=== PATIENT | male | born 1950 | race Caucasian/White ===

== ENCOUNTER → 2016-08-24 | Outpatient (CLI) | payer MEDICARE ==
--- NOTE | 2016-08-25 09:58 | XR ---
EXAMINATION TYPE: XR chest 2V DATE OF EXAM: 08/24/2016 9:58 AM COMPARISON: 04/10/2016 HISTORY: Cough and congestion FINDINGS: Hyperinflation suggests COPD. There is biapical pleural thickening and subsegmental area of consolida tion involving the left midlung. This is stable suggestive of chronic atelectasis or scar. No pleural effusion or acute infiltrate. No pneumothorax or interstitial edema. Hypertrophic and degenerative change of the spine noted. Mild wedge deformity in the midthoracic spine appears chronic. IMPRESSION: 1. Findings suggest COPD which appears stable from previous with chronic parenchymal changes involvin g the left lung.
== END | disposition home or self-care (01) ==
LOC: RADXRYALE 09:47
PROVIDERS: ATTEND Family Medicine
DX: J20.9 Acute bronchitis, unspecified (principal)
CPT/HCPCS: 71020

== ENCOUNTER 2016-11-02 20:32 | Emergency (ER) | payer MEDICARE ==
[2016-11-02] MEDS ORDERED: DIPH,PERTUS(ACELL)TETVAC-LF 0.5 ML VIAL IM ONE (21:22)
--- NOTE | 2016-11-02 21:28 | ED ---
General Adult HPI - General Chief complaint: Head Injury Stated complaint: Fall/Lac forehead Time Seen by Provider: 11/02/16 20:42 Source: patient, family, RN notes reviewed Mode of arrival: ambulatory Limitations: no limitations - History of Present Illness Initial comments: Patient is a pleasant 65-year-old male presenting to the emergency department following a fall. Patient slipped and fell in the shower. Patient sustained laceration to his forehead. Patient did also scraped his right mid leg. Unclear last tetanus immunization. Patient has had bleeding controlled with a right forehead. No syncope. No loss of consciousness. No visual change. Patient only has discomfort at the site of laceration. No neck or back pain. No chest pain or dyspnea. No abdominal pain. - Related Data Home Medications Medication Instructions Recorded Confirmed Folic Acid 1 mg PO DAILY 04/25/14 11/02/16 buPROPion HCL [Wellbutrin XL] 150 mg PO QAM 04/25/14 11/02/16 Magnesium Oxide [Mag-Ox] 250 mg PO DAILY 05/02/15 11/02/16 levETIRAcetam [Keppra] 1,500 mg PO Q12HR 05/02/15 11/02/16 Albuterol Inhaler [Ventolin Hfa 2 puff INHALATION RT-Q6H PRN 09/22/15 11/02/16 Inhaler] Aspirin [Adult Low Dose Aspirin EC] 81 mg PO DAILY 09/22/15 11/02/16 Ferrous Sulfate [Iron (65 MG 975 mg PO DAILY 09/22/15 11/02/16 Elemental)] HYDROcodone/APAP 10-325MG [[place] 1 tab PO Q4-6H PRN 09/22/15 11/02/16 10-325] Nitroglycerin Sl Tabs [Nitrostat] 0.4 mg SUBLINGUAL Q5M PRN 09/22/15 11/02/16 Nystatin 100,000Unit/gm Cream 1 applic TOPICAL BID PRN 09/22/15 11/02/16 [Mycostatin Cream] [place]-3 Fatty Acids/Fish Oil [Fish 1 cap PO DAILY 09/22/15 11/02/16 Oil 1,000 mg Softgel] Omeprazole [PriLOSEC] 20 mg PO AC-BRKFST 09/28/15 11/02/16 predniSONE 10 mg PO QAM 09/28/15 11/02/16 Previous Rx's Medication Instructions Recorded Cephalexin [Keflex] 500 mg PO Q8HR #21 cap 11/02/16 Allergies Allergy/AdvReac Type Severity Reaction Status Date / Time No Known Allergies Allergy Verified 11/02/16 21:52 Review of Systems ROS Statement: Those systems with pertinent positive or pertinent negative responses have been documented in the HPI. ROS Other: All systems not noted in ROS Statement are negative. 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 Last Myocardial Infarction Date:: UNK History of Any Multi-Drug Resistant Organisms: None Reported Past Surgical History: Heart Catheterization With Stent, Tonsillectomy, Ventriculoperitoneal Shunt Additional Past Surgical History / Comment(s): Right carotid endarterectomy, cardiac catheterization with insertion of a stent, STAFFING MGR shunt placement in 1986, left shoulder rotator cuff repair, multiple femoral stents 4. Vascular disease , bronchoscopy with bronchial lavage and transbronchial biopsy, fine-needle aspirate of the left lung Past Anesthesia/Blood Transfusion Reactions: No Reported Reaction Additional Past Anesthesia/Blood Transfusion Reaction / Comment(s): no problems with prior blood transfusion-last transfusion 2 units pRBCs September 21 or Date of Last Stent Placement:: UNK Past Psychological History: Anxiety, Depression Additional Psychological History / Comment(s): currently on Prozac for depression Smoking Status: Current every day smoker Past Alcohol Use History: Occasional Additional Past Alcohol Use History / Comment(s): SMOKED FOR 40 YEARS UP TO 1 PPD Past Drug Use History: None Reported - Past Family History Father Family Medical History: Dementia Additional Family Medical History / Comment(s): PARKINSON'S Mother Family Medical History: CVA/TIA, Dementia, Diabetes Mellitus Additional Family Medical History / Comment(s): Alheimer's General Exam Limitations: no limitations General appearance: alert, in no apparent distress Head exam: Present: other (Large forehead laceration) Eye exam: Present: normal appearance, PERRL, EOMI ENT exam: Present: normal oropharynx Neck exam: Present: normal inspection. Absent: tenderness Respiratory exam: Present: normal lung sounds bilaterally Cardiovascular Exam: Present: regular rate, normal rhythm GI/Abdominal exam: Present: soft. Absent: tenderness Extremities exam: Present: normal inspection, full ROM. Absent: tenderness Neurological exam: Present: alert, CN II-XII intact. Absent: motor sensory deficit Expanded Cranial nerves: EOM's Intact: Normal Motor strength exam: RUE: 5, LUE: 5, RLE: 5, LLE: 5 Eye Response: (4) open spontaneously Motor Response: (6) obeys commands Verbal Response: (5) oriented Psychiatric exam: Present: normal affect, normal mood Skin exam: Present: abrasion (Right gregory), other (7 cm forehead laceration with active bleeding extending to the left eyebrow.) Course Vital Signs 11/02/16 20:36 Temperature 98.1 F Pulse Rate 113 H Respiratory 20 Rate Blood Pressure 143/103 O2 Sat by Pulse 95 Oximetry Procedures - Laceration Laceration #1 Consent Obtained: verbal consent Time Out Performed: Yes Indication: laceration Site: face (Forehead) Size (cm): 7 Description: linear Depth: simple, single layer Anesthetic Used: lidocaine 1% Anesthesia Technique: local infiltration Pre-repair: wound explored, irrigated extensively Type of Sutures: nylon, vicryl (2 of 5-0 Vicryl) Size of Sutures: 5-0 Number of Sutures: 12 Technique: simple, interrupted Patient Tolerated Procedure: well, no complications Medical Decision Making - Medical Decision Making Patient and family updated - Radiology Data Radiology results: report reviewed (Computed tomography scan of the brain reveals no acute process) Disposition Clinical Impression: Head injury, Forehead laceration Disposition: HOME SELF-CARE Condition: Stable Instructions: Head Injury (ED), Laceration (ED) Additional Instructions: Please follow-up with primary care physician in the next couple days for recheck. Twice daily wash with soap and water, apply antibiotic ointment, and keep bandaged. Suture removal in 7-8 days. Return for bleeding, swelling, redness and confusion, change in mental status, worsening symptoms or other concerns. Prescriptions: Cephalexin [Keflex] 500 mg PO Q8HR #21 cap Referrals: Alex Villarreal MD [Primary Care Provider] - 1-2 days
--- NOTE | 2016-11-02 22:05 | CT ---
EXAMINATION TYPE: CT brain wo con DATE OF EXAM: 11/02/2016 9:55 PM COMPARISON: 09/22/2015 HISTORY: fall CT DLP: 1017.9 mGycm Automated exposure control for dose reduction was used. FINDINGS: There is cerebral cortical atrophy. There is no mass effect nor midline shift. There is no sign of in tracranial hemorrhage. There is a ventricular shunt catheter with the tip in the third ventricle. The re is scalp soft tissue swelling over the midline frontal bone. I see no fracture. IMPRESSION: Cerebral atrophy. Chronic small vessel ischemia. Mild normal pressure type hydrocephalus. Frontal sca lp soft tissue swelling. No intracranial change compared to old exam.
[2016-11-02 22:29] VITALS: BP 146/97; PULSE 91; RESP 18; TEMP 97.9
== END 2016-11-02 22:28 | disposition home or self-care (01) ==
LOC: EC 20:32
DX: S01.81XA Laceration without foreign body of other part of head, initial encounter (principal); I25.10 Atherosclerotic heart disease of native coronary artery without angina pectoris; G40.909 Epilepsy, unspecified, not intractable, without status epilepticus; F32.9 Major depressive disorder, single episode, unspecified; F41.9 Anxiety disorder, unspecified; M06.9 Rheumatoid arthritis, unspecified; D64.9 Anemia, unspecified; F17.200 Nicotine dependence, unspecified, uncomplicated; Z23 Encounter for immunization; Z79.899 Other long term (current) drug therapy; Z79.82 Long term (current) use of aspirin; Z95.5 Presence of coronary angioplasty implant and graft; W01.0XXA Fall on same level from slipping, tripping and stumbling without subsequent striking against object, initial encounter; Y92.89 Other specified places as the place of occurrence of the external cause
CPT/HCPCS: 12014; 70450; 90471; 90715; 99283

== ENCOUNTER 2016-11-03 14:52 | Emergency (ER) | payer MEDICARE ==
[2016-11-03 14:58] VITALS: BP 138/93; PULSE 90; RESP 20; TEMP 98.2
[2016-11-03] MEDS ORDERED: LIDOCAINE 1%-EPI 1:100,000 20 ML VIAL SQ STA (15:14)
--- NOTE | 2016-11-03 16:05 | ED ---
General Adult HPI - General Chief complaint: Recheck/Abnormal Lab/Rx Stated complaint: fall revisit bleeding Time Seen by Provider: 11/03/16 15:02 Source: patient, family, RN notes reviewed Mode of arrival: wheelchair Limitations: no limitations - History of Present Illness Initial comments: Patient is 65-year-old male who presents emergency room today with a chief complaint of bleeding coming from laceration site. Patient does admit to a fall yesterday in the bathroom. States he was seen here in emergency room. States he had a head CT. States is currently not on any blood thinners. States he had laceration closed here in the emergency room. States he woke up around 10 AM and was bleeding from the area. States she's changed her dressing twice still bleeding. Patient denies any other complaints or symptoms. Patient denies any recent fever, chills, shortness of breath, chest pain, back pain, abdominal pain, nausea or vomiting, numbness or tingling, dysuria or hematuria, constipation or diarrhea, headaches or visual changes, or any other complaints. - Related Data Home Medications Medication Instructions Recorded Confirmed Folic Acid 1 mg PO DAILY 04/25/14 11/03/16 buPROPion HCL [Wellbutrin XL] 150 mg PO QAM 04/25/14 11/03/16 Magnesium Oxide [Mag-Ox] 250 mg PO DAILY 05/02/15 11/03/16 levETIRAcetam [Keppra] 1,500 mg PO Q12HR 05/02/15 11/03/16 Albuterol Inhaler [Ventolin Hfa 2 puff INHALATION RT-Q6H PRN 09/22/15 11/03/16 Inhaler] Aspirin [Adult Low Dose Aspirin EC] 81 mg PO DAILY 09/22/15 11/03/16 Ferrous Sulfate [Iron (65 MG 975 mg PO DAILY 09/22/15 11/03/16 Elemental)] HYDROcodone/APAP 10-325MG [[place] 1 tab PO Q4-6H PRN 09/22/15 11/03/16 10-325] Nitroglycerin Sl Tabs [Nitrostat] 0.4 mg SUBLINGUAL Q5M PRN 09/22/15 11/03/16 Nystatin 100,000Unit/gm Cream 1 applic TOPICAL BID PRN 09/22/15 11/03/16 [Mycostatin Cream] [place]-3 Fatty Acids/Fish Oil [Fish 1 cap PO DAILY 09/22/15 11/03/16 Oil 1,000 mg Softgel] Omeprazole [PriLOSEC] 20 mg PO AC-BRKFST 09/28/15 11/03/16 predniSONE 10 mg PO QAM 09/28/15 11/03/16 Previous Rx's Medication Instructions Recorded Cephalexin [Keflex] 500 mg PO Q8HR #21 cap 11/02/16 Allergies Allergy/AdvReac Type Severity Reaction Status Date / Time No Known Allergies Allergy Verified 11/03/16 15:00 Review of Systems ROS Statement: Those systems with pertinent positive or pertinent negative responses have been documented in the HPI. ROS Other: All systems not noted in ROS Statement are negative. 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 Last Myocardial Infarction Date:: UNK History of Any Multi-Drug Resistant Organisms: None Reported Past Surgical History: Heart Catheterization With Stent, Tonsillectomy, Ventriculoperitoneal Shunt Additional Past Surgical History / Comment(s): Right carotid endarterectomy, cardiac catheterization with insertion of a stent, CIRCULAR SAW FILER shunt placement in 1986, left shoulder rotator cuff repair, multiple femoral stents 4. Vascular disease , bronchoscopy with bronchial lavage and transbronchial biopsy, fine-needle aspirate of the left lung Past Anesthesia/Blood Transfusion Reactions: No Reported Reaction Additional Past Anesthesia/Blood Transfusion Reaction / Comment(s): no problems with prior blood transfusion-last transfusion 2 units pRBCs September 21 or Date of Last Stent Placement:: UNK Past Psychological History: Anxiety, Depression Additional Psychological History / Comment(s): currently on Prozac for depression Smoking Status: Current every day smoker Past Alcohol Use History: Occasional Additional Past Alcohol Use History / Comment(s): SMOKED FOR 40 YEARS UP TO 1 PPD Past Drug Use History: None Reported - Past Family History Father Family Medical History: Dementia Additional Family Medical History / Comment(s): PARKINSON'S Mother Family Medical History: CVA/TIA, Dementia, Diabetes Mellitus Additional Family Medical History / Comment(s): Alheimer's General Exam - General Exam Comments Initial Comments: General: The patient is awake and alert, in no distress, and does not appear acutely ill. Eye: Pupils are equal, round and reactive to light, extra-ocular movements are intact. No nystagmus. There is normal conjunctiva bilaterally. No signs of icterus. Ears, nose, mouth and throat: There are moist mucous membranes and no oral lesions. Neck: The neck is supple, there is no tenderness or JVD. Cardiovascular: There is a regular rate and rhythm. No murmur, rub or gallop is appreciated. Respiratory: Lungs are clear to auscultation, respirations are non-labored, breath sounds are equal. No wheezes, stridor, rales, or rhonchi. Musculoskeletal: Normal ROM, no tenderness. Strength 5/5. Sensation intact. Pulses equal bilaterally 2+. Neurological: A&O x 3. CN II-XII intact, There are no obvious motor or sensory deficits. Coordination appears grossly intact. Speech is normal. Skin: As in swelling locally to the forehead and around the eyes bilaterally. Psychiatric: Cooperative, appropriate mood & affect, normal judgment. Limitations: no limitations Course Vital Signs 11/03/16 14:55 Temperature 98.2 F Pulse Rate 90 Respiratory 20 Rate Blood Pressure 138/93 O2 Sat by Pulse 98 Oximetry Procedures - Procedures Initial comment: Laceration site anesthetized locally with 1% lidocaine with epinephrine. Laceration site running midline of the forehead measuring total of approximately 3 cm. 3 old sutures were removed. 2 mattress sutures placed using 5-0 nylon. 2 other simple interrupted sutures placed using 5-0 nylon. Medical Decision Making - Medical Decision Making 3 sutures removed that were loose and due to swelling that had gone down. A total of 2 fracture sutures were placed with 2 more simple interrupted sutures. Patient has had no rebleeding. Patient will be discharged home. Disposition Clinical Impression: Encounter for wound re-check Disposition: HOME SELF-CARE Condition: Good Instructions: Laceration (ED) Additional Instructions: Please have sutures removed in 6-7 days. Please return to emergency room if bleeding recurs or for increase or worsen symptoms. Time of Disposition: 16:04
== END 2016-11-03 16:25 | disposition home or self-care (01) ==
LOC: EC 14:52
DX: S01.81XD Laceration without foreign body of other part of head, subsequent encounter (principal); G40.909 Epilepsy, unspecified, not intractable, without status epilepticus; M06.9 Rheumatoid arthritis, unspecified; F32.9 Major depressive disorder, single episode, unspecified; F17.200 Nicotine dependence, unspecified, uncomplicated; Z79.82 Long term (current) use of aspirin; Z79.52 Long term (current) use of systemic steroids; Z79.899 Other long term (current) drug therapy; W19.XXXD Unspecified fall, subsequent encounter
CPT/HCPCS: 12013; 99282

== ENCOUNTER 2017-09-23 14:35 | Inpatient (IN) | payer OTHER, MEDICARE ==
[2017-09-23] MEDS ORDERED: MORPHINE SULFATE 4 MG/ML SYRINGE IV STA (15:21)
[2017-09-23] MEDS ORDERED: SODIUM CHLORIDE 0.9% 1,000 ML IV STA (15:21)
[2017-09-23] MEDS ORDERED: ONDANSETRON ODT 4 MG TAB PO STA (15:21)
[2017-09-23 15:45] LABS: Basophils # (A) 0.1 k/uL (0-0.2); Basophils % (A) 1 %; Eosinophils # (A) 0.2 k/uL (0-0.7); Eosinophils % (A) 1 %; HCT 41.9 % (39.0-53.0); HGB 14.4 gm/dL (13.0-17.5); Lymphocytes # (A) 1.4 k/uL (1.0-4.8); Lymphocytes % (A) 12 %; MCH 32.5 pg (25.0-35.0); MCHC 34.4 g/dL (31.0-37.0); Mean Platelet Volume 7.6; Monocytes # (A) 0.7 k/uL (0-1.0); Monocytes % (A) 6 %; Neutrophils # (A) 9.4 k/uL (1.3-7.7); Neutrophils % (A) 79 %; Platelet Count 179 k/uL (150-450); RBC 4.43 m/uL (4.30-5.90); RDW 14.1 % (11.5-15.5)
[2017-09-23 15:49] LABS: MCV 94.5 fL (80.0-100.0)
[2017-09-23] MEDS: SODIUM CHLORIDE 0.9% 1,000 ML IV STA ×2 (15:54→23:20)
[2017-09-23 15:55] LABS: ALT 41 U/L (21-72); AST 29 U/L (17-59); Albumin 3.6 g/dL (3.5-5.0); Alkaline Phosphatase 92 U/L (38-126); Anion Gap 9 mmol/L; Blood Urea Nitrogen 19 mg/dL (9-20); Calcium 9.7 mg/dL (8.4-10.2); Carbon Dioxide 28 mmol/L (22-30); Chloride 102 mmol/L (98-107); Glucose 72 mg/dL (74-99); Lipase 63 U/L (23-300); Potassium 4.1 mmol/L (3.5-5.1); Sodium 139 mmol/L (137-145); Total Bilirubin 1.1 mg/dL (0.2-1.3); Total Protein 6.1 g/dL (6.3-8.2)
[2017-09-23 16:18] LABS: Appearance,Urine Clear (Clear); Bilirubin,Urine Negative (Negative); Blood,Urine Negative (Negative); Color,Urine Colorless; Glucose,Urine (UA) Negative (Negative); Ketones,Urine 1+ (Negative); Leukocyte Esterase,Urine Negative (Negative); Nitrite,Urine Negative (Negative); PH, Urine 6.5 (5.0-8.0); Protein,Urine Negative (Negative); Specific Gravity,Urine 1.006 (1.001-1.035); Urobilinogen,Urine <2.0 mg/dL (<2.0)
--- NOTE | 2017-09-23 16:27 | XR ---
EXAMINATION TYPE: XR chest 2V DATE OF EXAM: 09/23/2017 COMPARISON: 08/14/2017 HISTORY: Back pain TECHNIQUE: Frontal and lateral views of the chest are obtained. FINDINGS: There is coarse linear density at the left lung base. There is slight elevated left diaphr agm. Heart size is normal. There are no hilar masses. There is no pleural effusion. IMPRESSION: There is some scarring and atelectasis at the left lung base that is unchanged compared to last exam. Normal heart. There is improved inspiration and clearing of mild atelectasis at right l gabe base compared to old exam.
--- NOTE | 2017-09-23 16:55 | ED ---
Back Pain HPI - General Chief Complaint: Back Pain/Injury Stated Complaint: BACK PAIN Time Seen by Provider: 09/23/17 14:52 Source: patient, RN notes reviewed, old records reviewed Limitations: no limitations - History of Present Illness Initial Comments: This patient is 66-year-old male with a history of rheumatoid arthritis. He reports that he is been having severe back pain over the past few days. He reports that he is difficult for him to move and go from changing positions. Patient is currently taking [place] 10. Patient reports that he has no significant chest pain or shortness of breath. Patient reports generally feels very weak.Patient denies any recent fever, chills, shortness of breath, chest pain, nausea vomiting, numbness or tingling, dysuria or hematuria, constipation or diarrhea, headaches or visual changes, or any other current symptoms - Related Data Home Medications Medication Instructions Recorded Confirmed Folic Acid 1 mg PO HS 04/25/14 09/23/17 buPROPion HCL [Wellbutrin XL] 150 mg PO HS 04/25/14 09/23/17 Magnesium Oxide [Mag-Ox] 500 mg PO HS 05/02/15 09/23/17 levETIRAcetam [Keppra] 1,500 mg PO BID 05/02/15 09/23/17 Ferrous Sulfate [Iron (65 MG 975 mg PO HS 09/22/15 09/23/17 Elemental)] HYDROcodone/APAP 10-325MG [[place] 1 tab PO Q4-6H PRN 09/22/15 09/23/17 10-325] [place]-3 Fatty Acids/Fish Oil [Fish 1 cap PO QAM 09/22/15 09/23/17 Oil 1,000 mg Softgel] Omeprazole [PriLOSEC] 20 mg PO HS 09/28/15 09/23/17 Atorvastatin [Lipitor] 80 mg PO HS 07/09/17 09/23/17 Clopidogrel [Plavix] 75 mg PO QAM 07/09/17 09/23/17 Docusate [Colace] 200 mg PO QAM 07/09/17 09/23/17 FLUoxetine HCL [PROzac] 20 mg PO BID 07/09/17 09/23/17 predniSONE 10 mg PO QAM 09/23/17 09/23/17 Previous Rx's Medication Instructions Recorded amLODIPine [Norvasc] 5 mg PO BID #60 tab 08/17/17 Allergies Allergy/AdvReac Type Severity Reaction Status Date / Time No Known Allergies Allergy Verified 09/23/17 15:28 Review of Systems ROS Statement: Those systems with pertinent positive or pertinent negative responses have been documented in the HPI. ROS Other: All systems not noted in ROS Statement are negative. Past Medical History Past Medical History: Coronary Artery Disease (CAD), COPD, Pneumonia, Seizure Disorder Additional Past Medical History / Comment(s): freq bloody sputum,chronic consolidation of the lingular segment of the left lung as discussed above, episode of the left lower lobe posterior segment pneumonia, hydrocephalus with a previous FILTER TIP CATCHER shunt placement, rheumatoid arthritis, migraine, diverticulosis, hiatal hernia,chronic anemia,1rst seizure Feb 2015-had only 3 seizures within 2 week period , no further or prior seizure activity. Last Myocardial Infarction Date:: UNK History of Any Multi-Drug Resistant Organisms: None Reported Past Surgical History: Heart Catheterization With Stent, Tonsillectomy, Ventriculoperitoneal Shunt Additional Past Surgical History / Comment(s): Right carotid endarterectomy, cardiac catheterization with insertion of a stent, FILTER TIP CATCHER shunt placement in 1986, left shoulder rotator cuff repair, multiple femoral stents 4. Vascular disease , bronchoscopy with bronchial lavage and transbronchial biopsy, fine-needle aspirate of the left lung Past Anesthesia/Blood Transfusion Reactions: No Reported Reaction Additional Past Anesthesia/Blood Transfusion Reaction / Comment(s): no problems with prior blood transfusion-last transfusion 2 units pRBCs September 21 or Date of Last Stent Placement:: UNK Past Psychological History: Anxiety, Depression Smoking Status: Current every day smoker Past Alcohol Use History: Occasional Past Drug Use History: None Reported - Past Family History Father Family Medical History: Dementia Additional Family Medical History / Comment(s): PARKINSON'S Mother Family Medical History: CVA/TIA, Dementia, Diabetes Mellitus Additional Family Medical History / Comment(s): Alheimer's General Exam - General Exam Comments Initial Comments: Is a 66-year-old male, patient appears to be in moderate pain. With certain movements she will start having spasm and yelling out in pain. Limitations: no limitations General appearance: alert, in no apparent distress Head exam: Present: atraumatic, normocephalic, normal inspection Eye exam: Present: normal appearance, PERRL, EOMI. Absent: scleral icterus, conjunctival injection, periorbital swelling ENT exam: Present: normal exam, mucous membranes moist Neck exam: Present: normal inspection. Absent: tenderness, meningismus, lymphadenopathy Respiratory exam: Present: normal lung sounds bilaterally. Absent: respiratory distress, wheezes, rales, rhonchi, stridor Cardiovascular Exam: Present: regular rate, normal rhythm, normal heart sounds. Absent: systolic murmur, diastolic murmur, rubs, gallop, clicks GI/Abdominal exam: Present: soft, normal bowel sounds. Absent: distended, tenderness, guarding, rebound, rigid Extremities exam: Present: normal inspection, full ROM, normal capillary refill. Absent: tenderness, pedal edema, joint swelling, calf tenderness Back exam: Present: normal inspection. Absent: full ROM (Vision is significant tenderness to palpation over the mid back.) Neurological exam: Present: alert, oriented X3, CN II-XII intact Psychiatric exam: Present: normal affect, normal mood Skin exam: Present: warm, dry, intact, normal color. Absent: rash Course Vital Signs 09/23/17 09/23/17 09/23/17 14:44 16:30 18:55 Temperature 97.6 F 97.8 F Pulse Rate 93 87 87 Respiratory 16 16 16 Rate Blood Pressure 171/98 144/79 155/74 O2 Sat by Pulse 94 L 98 96 Oximetry Medical Decision Making - Medical Decision Making This patient 66-year-old male presenting to return today chief complaint of severe back pain. He generally feels very ill and weak. He did do a workup on him give patient fluids. EKG shows no acute abdomen ice. To have mildly elevated troponin of 0.037. Patient is given IV pain medication reports is having somewhat better. He does have a history of mild dementia, most of the history is provided by the daughter. Patient has been on chronic steroids for quite some time, he sees feeling to his back is related to osteoporosis. They were never informed that he hasn't compression fractures. This time CT of the thoracolumbar spine shows evidence of compression fracture of T7 and T8. Patient CT angios chest was negative for PE. He had a mildly elevated d-dimer. At this time I discussed with Dr. Everett. With mildly elevated troponin with like to keep the patient in and observe him and repeat cardiac enzymes. The patient's pain managed at this time. - Lab Data Result diagrams: 09/23/17 15:03 09/23/17 15:03 Lab Results 09/23/17 09/23/17 09/23/17 Range/Units 15:03 15:03 15:03 WBC 12.0 H (3.8-10.6) k/uL RBC 4.43 (4.30-5.90) m/uL Hgb 14.4 (13.0-17.5) gm/dL Hct 41.9 (39.0-53.0) % MCV 94.5 D (80.0-100.0) fL MCH 32.5 (25.0-35.0) pg MCHC 34.4 (31.0-37.0) g/dL RDW 14.1 (11.5-15.5) % Plt Count 179 (150-450) k/uL Neutrophils % 79 % Lymphocytes % 12 % Monocytes % 6 % Eosinophils % 1 % Basophils % 1 % Neutrophils # 9.4 H (1.3-7.7) k/uL Lymphocytes # 1.4 (1.0-4.8) k/uL Monocytes # 0.7 (0-1.0) k/uL Eosinophils # 0.2 (0-0.7) k/uL Basophils # 0.1 (0-0.2) k/uL D-Dimer (<0.60) mg/L FEU Sodium 139 (137-145) mmol/L Potassium 4.1 (3.5-5.1) mmol/L Chloride 102 (98-107) mmol/L Carbon Dioxide 28 (22-30) mmol/L Anion Gap 9 mmol/L BUN 19 (9-20) mg/dL Creatinine 0.80 (0.66-1.25) mg/dL Est GFR (MDRD) Af Amer >60 (>60 ml/min/1.73 sqM) Est GFR (MDRD) Non-Af >60 (>60 ml/min/1.73 sqM) Glucose 72 L (74-99) mg/dL Plasma Lactic Acid Patrick 1.3 (0.7-2.0) mmol/L Calcium 9.7 (8.4-10.2) mg/dL Total Bilirubin 1.1 (0.2-1.3) mg/dL AST 29 (17-59) U/L ALT 41 (21-72) U/L Alkaline Phosphatase 92 (38-126) U/L Troponin I (0.000-0.034) ng/mL Total Protein 6.1 L (6.3-8.2) g/dL Albumin 3.6 (3.5-5.0) g/dL Lipase 63 (23-300) U/L Urine Color Urine Appearance (Clear) Urine pH (5.0-8.0) Ur Specific [place] (1.001-1.035) Urine Protein (Negative) Urine Glucose (UA) (Negative) Urine Ketones (Negative) Urine Blood (Negative) Urine Nitrite (Negative) Urine Bilirubin (Negative) Urine Urobilinogen (<2.0) mg/dL Ur Leukocyte Esterase (Negative) 09/23/17 09/23/17 09/23/17 Range/Units 15:03 15:03 16:01 WBC (3.8-10.6) k/uL RBC (4.30-5.90) m/uL Hgb (13.0-17.5) gm/dL Hct (39.0-53.0) % MCV (80.0-100.0) fL MCH (25.0-35.0) pg MCHC (31.0-37.0) g/dL RDW (11.5-15.5) % Plt Count (150-450) k/uL Neutrophils % % Lymphocytes % % Monocytes % % Eosinophils % % Basophils % % Neutrophils # (1.3-7.7) k/uL Lymphocytes # (1.0-4.8) k/uL Monocytes # (0-1.0) k/uL Eosinophils # (0-0.7) k/uL Basophils # (0-0.2) k/uL D-Dimer 0.61 H (<0.60) mg/L FEU Sodium (137-145) mmol/L Potassium (3.5-5.1) mmol/L Chloride (98-107) mmol/L Carbon Dioxide (22-30) mmol/L Anion Gap mmol/L BUN (9-20) mg/dL Creatinine (0.66-1.25) mg/dL Est GFR (MDRD) Af Amer (>60 ml/min/1.73 sqM) Est GFR (MDRD) Non-Af (>60 ml/min/1.73 sqM) Glucose (74-99) mg/dL Plasma Lactic Acid Patrick (0.7-2.0) mmol/L Calcium (8.4-10.2) mg/dL Total Bilirubin (0.2-1.3) mg/dL AST (17-59) U/L ALT (21-72) U/L Alkaline Phosphatase (38-126) U/L Troponin I 0.037 H* (0.000-0.034) ng/mL Total Protein (6.3-8.2) g/dL Albumin (3.5-5.0) g/dL Lipase (23-300) U/L Urine Color Colorless Urine Appearance Clear (Clear) Urine pH 6.5 (5.0-8.0) Ur Specific [place] 1.006 (1.001-1.035) Urine Protein Negative (Negative) Urine Glucose (UA) Negative (Negative) Urine Ketones 1+ H (Negative) Urine Blood Negative (Negative) Urine Nitrite Negative (Negative) Urine Bilirubin Negative (Negative) Urine Urobilinogen <2.0 (<2.0) mg/dL Ur Leukocyte Esterase Negative (Negative) 09/23/17 16:58 EKG is normal sinus rhythm, normal EKG noted. Ventricular rate of 89 bpm. IN interval is 134 ms. QRS duration 66 ms. QT QTc is 394/479 ms. No evidence of ST elevation or T-wave inversions. No evidence of atrial or ventricular arrhythmias. - Radiology Data Radiology results: report reviewed No Evidence of PE. There is partial clearing of the infiltrates and pleural thickening at the lung bases. Old exam. Stable inguinal scarring. There is healing T compression fracture compared to old exam. No progression. Do not see a filling defect in the right lower lobe pulmonary artery that is suggested by the previous exam.\ Chest x-ray shows some scarring and atelectasis at the left lung base periodic change compared to previous exam. Normal heart. Improved inspiration clearing of mild atelectasis in the right lung base compared to old exam. T7 compression fracture without change compared on exam. Mild T8 compression fracture compared to old exam. 10% depression of the superior endplate of L3 vertebral body. Disposition Clinical Impression: Elevated troponin, Compression fracture Disposition: ADMITTED IP TO THIS HOSP Condition: Stable Referrals: [facility]inic [Primary Care Provider] - 1-2 days Time of Disposition: 19:08
[2017-09-23] MEDS ORDERED: RX INFO: IV CONTRAST WAS GIVEN 1 EACH MISC MISCELLANE PRN (17:12)
--- NOTE | 2017-09-23 18:33 | CT ---
EXAMINATION TYPE: CT chest angio for PE DATE OF EXAM: 09/23/2017 COMPARISON: 08/14/2017 HISTORY: Upper and lower back pain, SOB. CT DLP: 630.48 mGycm Automated exposure control for dose reduction was used. CONTRAST: CT Chest for pulmonary embolism performed with with IV Contrast, patient injected with 95 mL of Omnip aque 350. FINDINGS: There are 3-D post processed images. There is no evidence of a pulmonary mass. Thoracic aorta is atheromatous. I see no filling defects i n the pulmonary arteries.. There is no mediastinal adenopathy. There are no hilar masses. There is coarse linear density in the lingula left upper lobe. There is no evidence of a pulmonary ma ss. There is mild pleural thickening at the posterior lung bases. There is anterior wedging of T8 vertebra with 25% loss of height. IMPRESSION: No evidence of pulmonary embolism. There is partial clearing of the infiltrates and pleural thickenin g at the lung bases compared to old exam. There is stable lingula scarring. There is healing T8 compression fracture compared to old exam. There is no progression. I do not see a filling defect in the right lower lobe pulmonary artery that is suggested by the previous exam.
--- NOTE | 2017-09-23 18:38 | CT ---
EXAMINATION TYPE: CT thor lumbar spine wo con DATE OF EXAM: 09/23/2017 COMPARISON: NONE HISTORY: Upper and lower back pain, SOB. CT DLP: 1080.96 mGycm Automated exposure control for dose reduction was used. FINDINGS: Multiple axial sections were obtained from the level of T8-1-2 T12 with no contrast. There is anterior wedging of T8 vertebra with 25% loss of height. There is also 25% anterior wedging of T7. There is some osteosclerosis in the T8 fracture. There is mild thoracic kyphotic deformity. Th ere is 10% depression of the superior endplate of L3 vertebral body. There is no thoracic paraspinal mass. IMPRESSION: THERE IS A T7 COMPRESSION FRACTURE WITHOUT CHANGE COMPARED TO OLD EXAM. THERE IS A NEW MILD T8 COMPRE SSION FRACTURE COMPARED TO OLD EXAM.
[2017-09-23] MEDS ORDERED: MORPHINE SULFATE 4 MG/ML SYRINGE IVP PRN (19:08)
[2017-09-23] MEDS ORDERED: ONDANSETRON 4 MG/2 ML VIAL IVP PRN (19:08)
[2017-09-23] MEDS ORDERED: NALOXONE 0.4 MG/ML 1 ML VIAL IV PRN (19:08)
[2017-09-23 19:35] LABS: Prothrombin Time 10.1 sec (9.0-12.0)
[2017-09-23 19:38] LABS: Partial Thromboplastin Time 21.6 sec (22.0-30.0)
[2017-09-23] MEDS: MORPHINE SULFATE 4 MG/ML SYRINGE IVP PRN (20:12)
[2017-09-23] MEDS ORDERED: NON-FORMULARY DRUG (Omeprazole [Prilosec] 20 MG) PO SCH (21:00)
[2017-09-23] MEDS: CYCLOBENZAPRINE 10 MG TAB PO PRN (22:11)
[2017-09-23] MEDS: MAGNESIUM OXIDE 400 MG TAB PO SCH (22:12)
[2017-09-23] MEDS: buPROPion XL 150 MG TAB.ER.24H PO SCH (22:12)
[2017-09-23] MEDS: FLUoxetine HCL 20 MG CAP PO SCH (22:12)
[2017-09-23] MEDS: FERROUS SULFATE 325 MG TAB PO SCH (22:12)
[2017-09-23] MEDS: ATORVASTATIN 80 MG TAB PO SCH (22:12)
[2017-09-23] MEDS: amLODIPine 5 MG TAB PO SCH (22:12)
[2017-09-23] MEDS ORDERED: IPRATROPIUM-ALBUTEROL 3 ML NEB INHALATION PRN (23:15)
--- NOTE | 2017-09-23 23:27 | P.HPIM ---
History of Present Illness H&P Date: 09/23/17 Chief Complaint: Acute on chronic back pain Patient is a 66-year-old male with a known history of COPD on home oxygen, coronary artery disease with history of stent placement, peripheral vascular disease and history of TIA with mild cognitive impairment and also chronic back pain due to compression fractures and Imdur arthritis came to ER with complaints of severe back pain for the past 2 days patient is unable to get her to the bed and needs 2 person assistance at home to transfer to change. Patient was brought to the hospital by his family for further evaluation. Patient [facility]. She is currently taking [place] 10 and Neurontin has been recently prescribed by his painter touch up. Otherwise patient denied any chest pain or shortness of breath. Back pain is mainly upper chest area. Patient reports generally feels very weak.Patient denies any recent fever , chills, shortness of breath, chest pain, nausea vomiting, numbness or tingling , dysuria or hematuria, constipation or diarrhea, headaches or visual changes, or any other current symptoms. D-dimer 0.61 Troponin 0.037 CTA showed no evidence of pulmonary embolism. There is partial clearing of infiltrates and pleural thickening at the lung base compared to previous exam CT thorax showed C7 compression fracture without change from old exam. New partial C8 compression fractures noted Review of Systems Patient denied any complaints of chest pain or shortness of breath. No fever no chills. Patient does have generalized weakness. No weight loss. No nausea vomiting or abdominal pain or diarrhea. no headache or dizziness or lightheadedness. No focal weakness. Complete review of systems could not be apparent from the patient due to underlying cognitive impairment. Most the history was taken from his daughter at bedside. Past Medical History Past Medical History: Coronary Artery Disease (CAD), COPD, Pneumonia, Seizure Disorder Additional Past Medical History / Comment(s): freq bloody sputum,chronic consolidation of the lingular segment of the left lung as discussed above, episode of the left lower lobe posterior segment pneumonia, hydrocephalus with a previous BACK TENDER PULP DRIER shunt placement, rheumatoid arthritis, migraine, diverticulosis, hiatal hernia,chronic anemia,1rst seizure Feb 2015-had only 3 seizures within 2 week period aprrox, no further or prior seizure activity. Last Myocardial Infarction Date:: UNK History of Any Multi-Drug Resistant Organisms: None Reported Past Surgical History: Heart Catheterization With Stent, Tonsillectomy, Ventriculoperitoneal Shunt Additional Past Surgical History / Comment(s): Right carotid endarterectomy, cardiac catheterization with insertion of a stent, BACK TENDER PULP DRIER shunt placement in 1986, left shoulder rotator cuff repair, multiple femoral stents 4. Vascular disease , bronchoscopy with bronchial lavage and transbronchial biopsy, fine-needle aspirate of the left lung Past Anesthesia/Blood Transfusion Reactions: No Reported Reaction Additional Past Anesthesia/Blood Transfusion Reaction / Comment(s): no problems with prior blood transfusion-last transfusion 2 units pRBCs September 21 or Date of Last Stent Placement:: UNK Past Psychological History: Anxiety, Depression Smoking Status: Current every day smoker Past Alcohol Use History: Occasional Past Drug Use History: None Reported - Past Family History Father Family Medical History: Dementia Additional Family Medical History / Comment(s): PARKINSON'S Mother Family Medical History: CVA/TIA, Dementia, Diabetes Mellitus Additional Family Medical History / Comment(s): Alheimer's Medications and Allergies Home Medications Medication Instructions Recorded Confirmed Type Folic Acid 1 mg PO HS 04/25/14 09/23/17 History buPROPion HCL [Wellbutrin XL] 150 mg PO HS 04/25/14 09/23/17 History Magnesium Oxide [Mag-Ox] 500 mg PO HS 05/02/15 09/23/17 History levETIRAcetam [Keppra] 1,500 mg PO BID 05/02/15 09/23/17 History Ferrous Sulfate [Iron (65 MG 975 mg PO HS 09/22/15 09/23/17 History Elemental)] HYDROcodone/APAP 10-325MG [[place] 1 tab PO Q4-6H PRN 09/22/15 09/23/17 History 10-325] [place]-3 Fatty Acids/Fish Oil [Fish 1 cap PO QAM 09/22/15 09/23/17 History Oil 1,000 mg Softgel] Omeprazole [PriLOSEC] 20 mg PO HS 09/28/15 09/23/17 History Atorvastatin [Lipitor] 80 mg PO HS 07/09/17 09/23/17 History Clopidogrel [Plavix] 75 mg PO QAM 07/09/17 09/23/17 History Docusate [Colace] 200 mg PO QAM 07/09/17 09/23/17 History FLUoxetine HCL [PROzac] 20 mg PO BID 07/09/17 09/23/17 History amLODIPine [Norvasc] 5 mg PO BID #60 tab 08/17/17 09/23/17 Rx predniSONE 10 mg PO QAM 09/23/17 09/23/17 History Allergies Allergy/AdvReac Type Severity Reaction Status Date / Time No Known Allergies Allergy Verified 09/23/17 15:28 Physical Exam Vitals: Vital Signs Temp Pulse Resp BP Pulse Ox 09/23/17 18:55 97.8 F 87 16 155/74 96 09/23/17 16:30 87 16 144/79 98 09/23/17 14:44 97.6 F 93 16 171/98 94 L Intake and Output 09/23/17 09/23/17 09/23/17 06:59 14:59 22:59 Output Total 200 Balance -200 Output: Urine 200 Other: Weight 77.111 kg Patient Weight 09/24/17 06:59 Weight 77.111 kg PHYSICAL EXAMINATION: Patient is lying in the bed comfortably, no acute distress, awake alert and oriented.. Mild cognitive impairment HEENT: Normocephalic. Neck is supple. Pupils reactive. Nostrils clear. Oral cavity is moist. Ears reveal no drainage. Neck reveals no JVD, carotid bruits, or thyromegaly. CHEST EXAMINATION: Trachea is central. Symmetrical expansion. Diminished breath sounds bilateral basilar. Mild expiratory wheezing no crackles. Minimal rhonchi. CARDIAC: Normal S1, S2 with no gallops. No murmurs ABDOMEN: Soft. Bowel sounds normal. No organomegaly. No abdominal bruits. Extremities: reveal no edema. No clubbing or cyanosis Neurologically awake, alert, oriented x3 with well-coordinated movements. No focal deficits noted. Mild cognitive impairment Skin: No rash or skin lesions. Psychiatric: Cooperative. Nonsuicidal Musculoskeletal: Tenderness over the lower thoracic spine. No joint swelling or deformity. Normal range of motion. Results CBC & Chem 7: 09/23/17 15:03 09/23/17 15:03 Labs: Abnormal Lab Results - Last 24 Hours (Table) 09/23/17 09/23/17 09/23/17 Range/Units 15:03 15:03 15:03 WBC 12.0 H (3.8-10.6) k/uL Neutrophils # 9.4 H (1.3-7.7) k/uL APTT (22.0-30.0) sec D-Dimer 0.61 H (<0.60) mg/L FEU Glucose 72 L (74-99) mg/dL Troponin I (0.000-0.034) ng/mL Total Protein 6.1 L (6.3-8.2) g/dL Urine Ketones (Negative) 09/23/17 09/23/17 09/23/17 Range/Units 15:03 15:03 16:01 WBC (3.8-10.6) k/uL Neutrophils # (1.3-7.7) k/uL APTT 21.6 L (22.0-30.0) sec D-Dimer (<0.60) mg/L FEU Glucose (74-99) mg/dL Troponin I 0.037 H* (0.000-0.034) ng/mL Total Protein (6.3-8.2) g/dL Urine Ketones 1+ H (Negative) Thrombosis Risk Factor Assmnt - DVT/VTE Prophylaxis DVT/VTE Prophylaxis: Pharmacologic Prophylaxis ordered Assessment and Plan Assessment: Acute on chronic back pain due to T7 compression fracture and new partial T8 compression fracture Elevated troponin 0.037. Possible non-ST elevated SC. History of coronary artery disease with stent placement. Last in 1999 COPD on home oxygen intermittently Rheumatoid arthritis. Chronic steroid-dependent prednisone 20 mg daily Osteoporosis History of TIA/CVA with mild cognitive impairment Chronic pain Severe peripheral vascular disease with history of lower extremity stent placement History of right carotid endarterectomy Hydrocephalus with History of BACK TENDER PULP DRIER shunt placement in 1986 History of left rotator cuff repair. Seizure disorder Hypertension Depression Normocytic anemia and history of iron deficiency DVT prophylaxis Plan: Patient will be continued on pain medications in the form of [place] 10, Flexeril and morphine when necessary. Due to elevated troponin level cardiology will be consulted and prior history of coronary disease. Continue with telemetry monitoring and serial EKG and troponins. Continue with Lasix and statins. Current with home medications and breathing treatments as needed. Stool softeners. DVT prophylaxis. Further recommendations based on the clinical course. Prognosis is guarded with multiple medical problems and comorbid conditions. Discussed with his daughter at bedside in detail. Time with Patient: Greater than 30
[2017-09-24] MEDS: MORPHINE SULFATE 4 MG/ML SYRINGE IVP PRN ×2 (02:30→06:46)
[2017-09-24 03:31] LABS: Creatine Kinase MB 0.7 ng/mL (0.0-2.4); Troponin I 0.031 ng/mL (0.000-0.034)
[2017-09-24 03:50] VITALS: BMI 25.1
[2017-09-24] MEDS: SODIUM CHLORIDE 0.9% 1,000 ML IV SCH ×2 (06:51→08:07)
[2017-09-24] MEDS: FERROUS SULFATE 325 MG TAB PO SCH ×3 (06:56→17:33)
[2017-09-24] MEDS: FLUoxetine HCL 20 MG CAP PO SCH ×2 (08:08→20:09)
[2017-09-24] MEDS: DOCUSATE 100 MG CAP PO SCH (08:08)
[2017-09-24] MEDS: CLOPIDOGREL 75 MG TAB PO SCH (08:09)
[2017-09-24] MEDS ORDERED: NON-FORMULARY DRUG (Omega-3 Fatty Acids/Fish Oil [Fish Oil 1,000 Mg Softgel] 1 CAP) PO SCH (09:00)
[2017-09-24] MEDS ORDERED: PANTOPRAZOLE 40 MG/10 ML VIAL IV SCH (09:00)
[2017-09-24] MEDS: CYCLOBENZAPRINE 10 MG TAB PO PRN ×2 (09:33→20:09)
[2017-09-24] MEDS: predniSONE 10 MG TAB PO SCH (09:33)
[2017-09-24] MEDS: amLODIPine 5 MG TAB PO SCH ×2 (09:34→20:10)
[2017-09-24] MEDS: HYDROcodone/APAP 10-325MG 1 EACH TAB PO PRN ×3 (10:31→23:45)
--- NOTE | 2017-09-24 10:39 | P.CRDCN ---
History of Present Illness Reason for Consult (text): Patient admitted for back pain which is chronic. Found to have an elevated troponin of 0.037. Known coronary artery disease known TIA with mild cognitive impairment and severe peripheral vascular disease status post stenting in the lower extremity, history of right carotid endarterectomy, history of hypertension ECG does not show any definite ST segment abnormalities Suggest Maximum medical treatment Hypertension management Continue antiplatelet therapy, continue statins Received full dictation by Dr. 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 Vascular disease , bronchoscopy with bronchial lavage and transbronchial biopsy, fine-needle aspirate of the left lung Past Anesthesia/Blood Transfusion Reactions: No Reported Reaction Additional Past Anesthesia/Blood Transfusion Reaction / Comment(s): no problems with prior blood transfusion-last transfusion 2 units pRBCs September 21 or Date of Last Stent Placement:: UNK Past Psychological History: Anxiety, Depression Smoking Status: Current every day smoker Past Alcohol Use History: Occasional Past Drug Use History: None Reported - Past Family History Father Family Medical History: Dementia Additional Family Medical History / Comment(s): PARKINSON'S Mother Family Medical History: CVA/TIA, Dementia, Diabetes Mellitus Additional Family Medical History / Comment(s): Alheimer's Medications and Allergies Home Medications Medication Instructions Recorded Confirmed Type Folic Acid 1 mg PO HS 04/25/14 09/23/17 History buPROPion HCL [Wellbutrin XL] 150 mg PO HS 04/25/14 09/23/17 History Magnesium Oxide [Mag-Ox] 500 mg PO HS 05/02/15 09/23/17 History levETIRAcetam [Keppra] 1,500 mg PO BID 05/02/15 09/23/17 History Ferrous Sulfate [Iron (65 MG 975 mg PO HS 09/22/15 09/23/17 History Elemental)] HYDROcodone/APAP 10-325MG [[place] 1 tab PO Q4-6H PRN 09/22/15 09/23/17 History 10-325] [place]-3 Fatty Acids/Fish Oil [Fish 1 cap PO QAM 09/22/15 09/23/17 History Oil 1,000 mg Softgel] Omeprazole [PriLOSEC] 20 mg PO HS 09/28/15 09/23/17 History Atorvastatin [Lipitor] 80 mg PO HS 07/09/17 09/23/17 History Clopidogrel [Plavix] 75 mg PO QAM 07/09/17 09/23/17 History Docusate [Colace] 200 mg PO QAM 07/09/17 09/23/17 History FLUoxetine HCL [PROzac] 20 mg PO BID 07/09/17 09/23/17 History amLODIPine [Norvasc] 5 mg PO BID #60 tab 08/17/17 09/23/17 Rx predniSONE 10 mg PO QAM 09/23/17 09/23/17 History Allergies Allergy/AdvReac Type Severity Reaction Status Date / Time No Known Allergies Allergy Verified 09/23/17 15:28 Physical Exam Vitals: Vital Signs Temp Pulse Pulse Resp BP BP BP 09/24/17 08:00 97.8 F 94 20 143/80 09/24/17 04:25 85 19 09/24/17 04:20 98.4 F 85 19 172/84 09/24/17 00:15 85 19 09/24/17 00:10 98.1 F 96 17 139/73 09/23/17 20:00 19 09/23/17 19:40 98.3 F 88 19 143/77 09/23/17 18:55 97.8 F 87 16 155/74 09/23/17 16:30 87 16 144/79 09/23/17 14:44 97.6 F 93 16 171/98 Pulse Ox 09/24/17 08:00 92 L 09/24/17 04:25 09/24/17 04:20 95 09/24/17 00:15 09/24/17 00:10 93 L 09/23/17 20:00 09/23/17 19:40 98 09/23/17 18:55 96 09/23/17 16:30 98 09/23/17 14:44 94 L Intake and Output 09/23/17 09/24/17 09/24/17 22:59 06:59 14:59 Output Total 200 200 150 Balance -200 -200 -150 Output: Urine 200 200 150 Other: Voiding Method Diaper Urinal Incontinent # Voids 4 Weight 77.111 kg 71 kg Results 09/23/17 15:03 09/23/17 15:03 Cardiac Enzymes 09/23/17 09/23/17 09/24/17 Range/Units 15:03 15:03 02:10 AST 29 (17-59) U/L CK-MB (CK-2) 0.7 (0.0-2.4) ng/mL Troponin I 0.037 H* 0.031 (0.000-0.034) ng/mL Coagulation 09/23/17 Range/Units 15:03 PT 10.1 (9.0-12.0) sec APTT 21.6 L (22.0-30.0) sec CBC 09/23/17 Range/Units 15:03 WBC 12.0 H (3.8-10.6) k/uL RBC 4.43 (4.30-5.90) m/uL Hgb 14.4 (13.0-17.5) gm/dL Hct 41.9 (39.0-53.0) % Plt Count 179 (150-450) k/uL Comprehensive Metabolic Panel 09/23/17 Range/Units 15:03 Sodium 139 (137-145) mmol/L Potassium 4.1 (3.5-5.1) mmol/L Chloride 102 (98-107) mmol/L Carbon Dioxide 28 (22-30) mmol/L BUN 19 (9-20) mg/dL Creatinine 0.80 (0.66-1.25) mg/dL Glucose 72 L (74-99) mg/dL Calcium 9.7 (8.4-10.2) mg/dL AST 29 (17-59) U/L ALT 41 (21-72) U/L Alkaline Phosphatase 92 (38-126) U/L Total Protein 6.1 L (6.3-8.2) g/dL Albumin 3.6 (3.5-5.0) g/dL Current Medications Generic Name Dose Route Start Last Admin Trade Name Freq PRN Reason Stop Dose Admin Hydrocodone Bitart/Acetaminophen 1 each 09/23/17 20:33 09/24/17 10:31 [place] 10 PO 1 each Q4H PRN Administration Moderate Pain Albuterol/Ipratropium 3 ml 09/23/17 23:15 Duoneb 0.5 Mg-3 Mg/3 Ml Soln INHALATION RT-QID PRN Shortness Of Breath Or Wheezing Amlodipine Besylate 5 mg 09/23/17 21:00 09/24/17 09:34 Norvasc PO 5 mg BID SISI Administration Atorvastatin Calcium 80 mg 09/23/17 21:00 09/23/17 22:12 Lipitor PO 80 mg HS SISI Administration Bupropion HCl 150 mg 09/23/17 21:00 09/23/17 22:12 Wellbutrin Xl PO 150 mg HS SISI Administration Clopidogrel Bisulfate 75 mg 09/24/17 09:00 09/24/17 08:09 Plavix PO 75 mg QAM SISI Administration Cyclobenzaprine HCl 10 mg 09/23/17 21:01 09/24/17 09:33 Flexeril PO 10 mg TID PRN Administration Muscle Spasm Docusate Sodium 200 mg 09/24/17 09:00 09/24/17 08:08 Colace PO 200 mg QAM SISI Administration Ferrous Sulfate 325 mg 09/23/17 21:00 09/24/17 09:33 Feosol PO 325 mg TID-W/MEALS SISI Administration Fluoxetine HCl 20 mg 09/23/17 21:00 09/24/17 08:08 Prozac PO 20 mg BID SISI Administration Folic Acid 1 mg 09/24/17 21:00 Folic Acid PO HS SISI Sodium Chloride 1,000 mls @ 20 mls/hr 09/23/17 19:15 09/24/17 08:07 Saline 0.9% IV 20 mls/hr .Q24H SISI Administration Levetiracetam 1,500 mg 09/23/17 21:00 09/24/17 08:08 Keppra PO 1,500 mg BID SISI Administration Magnesium Oxide 400 mg 09/23/17 21:00 09/23/17 22:12 Mag-Ox PO 400 mg HS SISI Administration Miscellaneous Information 1 each 09/23/17 17:12 Rx Info: Iv Contrast Was Given MISCELLANE 09/25/17 17:13 DAILY PRN Per Protocol Morphine Sulfate 4 mg 09/23/17 19:08 09/24/17 06:46 Morphine Sulfate (Inj) IVP 4 mg Q3HR PRN Administration Moderate Pain Morphine Sulfate 7 mg 09/23/17 19:08 Morphine Sulfate (Inj) IVP Q3HR PRN Severe Pain Naloxone HCl 0.2 mg 09/23/17 19:08 Narcan IV Q2M PRN Opioid Reversal Non-Formulary Medication 1 cap 09/24/17 09:00 09/24/17 08:10 [place]-3 Fatty Acids/Fish Oil [Fish Oil 1,000 Mg Softgel] PO Not Given QAM SISI Ondansetron HCl 4 mg 09/23/17 19:08 Zofran IVP Q8HR PRN Nausea And Vomiting Pantoprazole Sodium 40 mg 09/24/17 09:00 09/24/17 08:08 Protonix IV 40 mg DAILY SISI Administration Prednisone 10 mg 09/24/17 09:00 09/24/17 09:33 PO 10 mg QAM SISI Administration Intake and Output 09/23/17 09/24/17 09/24/17 22:59 06:59 14:59 Output Total 200 200 150 Balance -200 -200 -150 Output: Urine 200 200 150 Other: Voiding Method Diaper Urinal Incontinent # Voids 4 Weight 77.111 kg 71 kg 09/23/17 15:03 09/23/17 15:03
--- NOTE | 2017-09-24 11:12 | P.CRDCN ---
History of Present Illness Consult date: 09/24/17 Requesting physician: Casimiro Garay Reason for Consult (text): Abnormal troponins Chief complaint: Severe back pain History of present illness: This is a 66-year-old gentleman most of the history was obtained from the medical record, patient can give some history however is quite confused about majority of his history. He has a history of COPD on home O2, peripheral vascular disease, coronary artery disease with prior stent placement, history of TIA, cognitive impairment, compression fractures. He was brought to the hospital by family because of severe back pain. 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 Cardiology consultation was requested because of abnormal troponins. According to the patient, he has not been experiencing any chest discomfort, no shortness of breath. EKG shows normal sinus rhythm with no acute changes. Chest x-ray shows some scarring and atelectasis at the left lung base, unchanged from last exam. There is improved inspiration and clearing of mild atelectasis as compared with prior exam. CAT scan of the chest was performed which negative for pulmonary embolism. Partial clearing of the infiltrates and pleural thickening as compared with prior. CAT scan of the spine revealed a T7 compression fracture without change as compared with prior. There is a new mild T8 compression fracture noted. Blood pressure on arrival here 170/90 with a heart rate in the 90s, 94% on room air. Blood pressure this morning 142/80 with a heart rate in the 80s to 90s. White blood cell count normal, hemoglobin 14.4, d-dimer 0.6. Sodium 139, potassium 4.1, BUN 19, creatinine 0.8. Troponins 0.037, 0.031. At the time of our examination this morning, patient denies any chest discomfort, breathing is stable, continues to complain of back pain. 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 Vascular disease , bronchoscopy with bronchial lavage and transbronchial biopsy, fine-needle aspirate of the left lung Past Anesthesia/Blood Transfusion Reactions: No Reported Reaction Additional Past Anesthesia/Blood Transfusion Reaction / Comment(s): no problems with prior blood transfusion-last transfusion 2 units pRBCs September 21 or Date of Last Stent Placement:: UNK Past Psychological History: Anxiety, Depression Smoking Status: Current every day smoker Past Alcohol Use History: Occasional Past Drug Use History: None Reported - Past Family History Father Family Medical History: Dementia Additional Family Medical History / Comment(s): PARKINSON'S Mother Family Medical History: CVA/TIA, Dementia, Diabetes Mellitus Additional Family Medical History / Comment(s): Herberthheimer's Medications and Allergies Home Medications Medication Instructions Recorded Confirmed Type Folic Acid 1 mg PO HS 04/25/14 09/23/17 History buPROPion HCL [Wellbutrin XL] 150 mg PO HS 04/25/14 09/23/17 History Magnesium Oxide [Mag-Ox] 500 mg PO HS 05/02/15 09/23/17 History levETIRAcetam [Keppra] 1,500 mg PO BID 05/02/15 09/23/17 History Ferrous Sulfate [Iron (65 MG 975 mg PO HS 09/22/15 09/23/17 History Elemental)] HYDROcodone/APAP 10-325MG [[place] 1 tab PO Q4-6H PRN 09/22/15 09/23/17 History 10-325] [place]-3 Fatty Acids/Fish Oil [Fish 1 cap PO QAM 09/22/15 09/23/17 History Oil 1,000 mg Softgel] Omeprazole [PriLOSEC] 20 mg PO HS 09/28/15 09/23/17 History Atorvastatin [Lipitor] 80 mg PO HS 07/09/17 09/23/17 History Clopidogrel [Plavix] 75 mg PO QAM 07/09/17 09/23/17 History Docusate [Colace] 200 mg PO QAM 07/09/17 09/23/17 History FLUoxetine HCL [PROzac] 20 mg PO BID 07/09/17 09/23/17 History amLODIPine [Norvasc] 5 mg PO BID #60 tab 08/17/17 09/23/17 Rx predniSONE 10 mg PO QAM 09/23/17 09/23/17 History Allergies Allergy/AdvReac Type Severity Reaction Status Date / Time No Known Allergies Allergy Verified 09/23/17 15:28 Physical Exam Vitals: Vital Signs Temp Pulse Pulse Resp BP BP BP 09/24/17 08:00 97.8 F 94 20 143/80 09/24/17 04:25 85 19 09/24/17 04:20 98.4 F 85 19 172/84 09/24/17 00:15 85 19 09/24/17 00:10 98.1 F 96 17 139/73 09/23/17 20:00 19 09/23/17 19:40 98.3 F 88 19 143/77 09/23/17 18:55 97.8 F 87 16 155/74 09/23/17 16:30 87 16 144/79 09/23/17 14:44 97.6 F 93 16 171/98 Pulse Ox 09/24/17 08:00 92 L 09/24/17 04:25 09/24/17 04:20 95 09/24/17 00:15 09/24/17 00:10 93 L 09/23/17 20:00 09/23/17 19:40 98 09/23/17 18:55 96 09/23/17 16:30 98 09/23/17 14:44 94 L Intake and Output 09/23/17 09/24/17 09/24/17 22:59 06:59 14:59 Intake Total 100 Output Total 200 200 150 Balance -200 -200 -50 Intake: Oral 100 Output: Urine 200 200 150 Other: Voiding Method Diaper Urinal Incontinent # Voids 4 Weight 77.111 kg 71 kg PHYSICAL EXAMINATION: HEENT: Head is atraumatic, normocephalic. Pupils equal, round. Neck is supple. There is no elevated jugular venous pressure. HEART EXAMINATION: Heart S1, S2 normal. No murmur or gallop heard. CHEST EXAMINATION: Lungs reveal diminished air entry to bilateral bases. ABDOMEN: Soft, nontender. Bowel sounds are heard. No organomegaly noted. EXTREMITIES: 2+ peripheral pulses with no evidence of peripheral edema and no calf tenderness noted. NEUROLOGIC patient is awake, alert and oriented -3. . Results 09/23/17 15:03 09/23/17 15:03 Cardiac Enzymes 09/23/17 09/23/17 09/24/17 Range/Units 15:03 15:03 02:10 AST 29 (17-59) U/L CK-MB (CK-2) 0.7 (0.0-2.4) ng/mL Troponin I 0.037 H* 0.031 (0.000-0.034) ng/mL Coagulation 09/23/17 Range/Units 15:03 PT 10.1 (9.0-12.0) sec APTT 21.6 L (22.0-30.0) sec CBC 09/23/17 Range/Units 15:03 WBC 12.0 H (3.8-10.6) k/uL RBC 4.43 (4.30-5.90) m/uL Hgb 14.4 (13.0-17.5) gm/dL Hct 41.9 (39.0-53.0) % Plt Count 179 (150-450) k/uL Comprehensive Metabolic Panel 09/23/17 Range/Units 15:03 Sodium 139 (137-145) mmol/L Potassium 4.1 (3.5-5.1) mmol/L Chloride 102 (98-107) mmol/L Carbon Dioxide 28 (22-30) mmol/L BUN 19 (9-20) mg/dL Creatinine 0.80 (0.66-1.25) mg/dL Glucose 72 L (74-99) mg/dL Calcium 9.7 (8.4-10.2) mg/dL AST 29 (17-59) U/L ALT 41 (21-72) U/L Alkaline Phosphatase 92 (38-126) U/L Total Protein 6.1 L (6.3-8.2) g/dL Albumin 3.6 (3.5-5.0) g/dL Current Medications Generic Name Dose Route Start Last Admin Trade Name Freq PRN Reason Stop Dose Admin Hydrocodone Bitart/Acetaminophen 1 each 09/23/17 20:33 09/24/17 10:31 [place] 10 PO 1 each Q4H PRN Administration Moderate Pain Albuterol/Ipratropium 3 ml 09/23/17 23:15 Duoneb 0.5 Mg-3 Mg/3 Ml Soln INHALATION RT-QID PRN Shortness Of Breath Or Wheezing Amlodipine Besylate 5 mg 09/23/17 21:00 09/24/17 09:34 Norvasc PO 5 mg BID SISI Administration Atorvastatin Calcium 80 mg 09/23/17 21:00 09/23/17 22:12 Lipitor PO 80 mg HS SISI Administration Bupropion HCl 150 mg 09/23/17 21:00 09/23/17 22:12 Wellbutrin Xl PO 150 mg HS SISI Administration Clopidogrel Bisulfate 75 mg 09/24/17 09:00 09/24/17 08:09 Plavix PO 75 mg QAM SISI Administration Cyclobenzaprine HCl 10 mg 09/23/17 21:01 09/24/17 09:33 Flexeril PO 10 mg TID PRN Administration Muscle Spasm Docusate Sodium 200 mg 09/24/17 09:00 09/24/17 08:08 Colace PO 200 mg QAM SISI Administration Ferrous Sulfate 325 mg 09/23/17 21:00 09/24/17 09:33 Feosol PO 325 mg TID-W/MEALS SISI Administration Fluoxetine HCl 20 mg 09/23/17 21:00 09/24/17 08:08 Prozac PO 20 mg BID SISI Administration Folic Acid 1 mg 09/24/17 21:00 Folic Acid PO HS [facility] Sodium Chloride 1,000 mls @ 20 mls/hr 09/23/17 19:15 09/24/17 08:07 Saline 0.9% IV 20 mls/hr .Q24H SISI Administration Levetiracetam 1,500 mg 09/23/17 21:00 09/24/17 08:08 Keppra PO 1,500 mg BID SISI Administration Magnesium Oxide 400 mg 09/23/17 21:00 09/23/17 22:12 Mag-Ox PO 400 mg HS SISI Administration Miscellaneous Information 1 each 09/23/17 17:12 Rx Info: Iv Contrast Was Given MISCELLANE 09/25/17 17:13 DAILY PRN Per Protocol Morphine Sulfate 4 mg 09/23/17 19:08 09/24/17 06:46 Morphine Sulfate (Inj) IVP 4 mg Q3HR PRN Administration Moderate Pain Morphine Sulfate 7 mg 09/23/17 19:08 Morphine Sulfate (Inj) IVP Q3HR PRN Severe Pain Naloxone HCl 0.2 mg 09/23/17 19:08 Narcan IV Q2M PRN Opioid Reversal Non-Formulary Medication 1 cap 09/24/17 09:00 09/24/17 08:10 [place]-3 Fatty Acids/Fish Oil [Fish Oil 1,000 Mg Softgel] PO Not Given QAM SISI Ondansetron HCl 4 mg 09/23/17 19:08 Zofran IVP Q8HR PRN Nausea And Vomiting Pantoprazole Sodium 40 mg 09/24/17 09:00 09/24/17 08:08 Protonix IV 40 mg DAILY SISI Administration Prednisone 10 mg 09/24/17 09:00 09/24/17 09:33 PO 10 mg QAM SISI Administration Intake and Output 09/23/17 09/24/17 09/24/17 22:59 06:59 14:59 Intake Total 100 Output Total 200 200 150 Balance -200 -200 -50 Intake: Oral 100 Output: Urine 200 200 150 Other: Voiding Method Diaper Urinal Incontinent # Voids 4 Weight 77.111 kg 71 kg 09/23/17 15:03 09/23/17 15:03 EKG Interpretations (text) EKG shows normal sinus rhythm with no acute changes. Assessment and Plan Plan: Assessment and plan #1 acute on chronic back pain secondary to T7 and T8 fractures #2 abnormal troponin, not consistent with acute coronary syndrome, likely secondary to supply and demand mismatch, patient denies any chest discomfort. Does not show any acute changes, normal sinus rhythm. #3 COPD on home O2 #4 history of coronary artery disease with prior stent placement Number 5 rheumatoid arthritis #6 history of TIA and CVA #7 severe peripheral vascular disease with prior stenting #8 hypertension #9 depression #10 hyperlipidemia Plan We will obtain an echocardiogram with Doppler study. Obtain third troponin value. Troponins not consistent with acute myocardial infarction. We will start the patient on a low-dose of beta artem for more optimal blood pressure and heart rate control. Further recommendations to follow. DNP note has been reviewed, I agree with a documented findings and plan of care. Patient was seen and examined.
[2017-09-24] MEDS: METOPROLOL TARTRATE 25 MG TAB PO SCH ×2 (11:42→20:10)
[2017-09-24] MEDS ORDERED: HYDROmorphone 4 MG TABLET PO PRN (15:01)
--- NOTE | 2017-09-24 16:16 | P.CNOR ---
History of Present Illness - [facility] Consult date: 09/24/17 Requesting physician: Nancy Collazo Consult reason: fracture (Acute T8 compression fracture deformity), back pain ( Thoracic back pain) History of present illness: Patient is a pleasant 66-year-old male who is seen and examined at the bedside with his daughter present after consultation was placed for severe back pain with imaging showing evidence of fracture. Patient was brought to the emergency department after severe exacerbation of thoracic back pain for the past couple days. He's had increased difficulty with mobility and ambulation. Patient has a significant medical history including of COPD on home oxygen, coronary artery disease with history of stent placement, PVD, and history of TIA with mild cognitive impairment along with chronic back pain. Patient and his family deny any recent falls, accidents, or injuries. He did have a significant coughing spell last month and has had some pain in his spine at that time. His symptoms are more severe currently. He is known to have compression fractures previously and does have some difficulty with chronic back pain. He receives [place] 10 mg/325 mg and Neur[place] as [place] at the [place]. Patient states he has pain in approximately the mid thoracic spine. He is not currently experiencing significant low back pain. He is able to move his legs independently but movements are slow. He is known have rheumatoid arthritis and does have pain with palpation of his bilateral feet and ankles. His family states he was not previously prescribed a brace for his fractures. He has no other complaints at the bedside. He is quite drowsy but is arousable and answers questions. Patient continues to be seen by medicine and has been consulted on by cardiology. Patient's family states he is undergoing further workup for the possibility of osteoporosis. Past Medical History Past Medical History: Coronary Artery Disease (CAD), COPD, Pneumonia, Seizure Disorder Additional Past Medical History / Comment(s): freq bloody sputum,chronic consolidation of the lingular segment of the left lung as discussed above, episode of the left lower lobe posterior segment pneumonia, hydrocephalus with a previous SUPPLY MANAGER shunt placement, rheumatoid arthritis, migraine, diverticulosis, hiatal hernia,chronic anemia,1rst seizure Feb 2015-had only 3 seizures within 2 week period apr, no further or prior seizure activity. Last Myocardial Infarction Date:: UNK History of Any Multi-Drug Resistant Organisms: None Reported Past Surgical History: Heart Catheterization With Stent, Tonsillectomy, Ventriculoperitoneal Shunt Additional Past Surgical History / Comment(s): Right carotid endarterectomy, cardiac catheterization with insertion of a stent, SUPPLY MANAGER shunt placement in 1986, left shoulder rotator cuff repair, multiple femoral stents 4. Vascular disease , bronchoscopy with bronchial lavage and transbronchial biopsy, fine-needle aspirate of the left lung Past Anesthesia/Blood Transfusion Reactions: No Reported Reaction Additional Past Anesthesia/Blood Transfusion Reaction / Comm: no problems with prior blood transfusion-last transfusion 2 units pRBCs September 21 or Date of Last Stent Placement:: UNK Past Psychological History: Anxiety, Depression Smoking Status: Current every day smoker Past Alcohol Use History: Occasional Past Drug Use History: None Reported - Past Family History Father Family Medical History: Dementia Additional Family Medical History / Comment(s): PARKINSON'S Mother Family Medical History: CVA/TIA, Dementia, Diabetes Mellitus Additional Family Medical History / Comment(s): Alheimer's Medications and Allergies Home Medications Medication Instructions Recorded Confirmed Type Folic Acid 1 mg PO HS 04/25/14 09/23/17 History buPROPion HCL [Wellbutrin XL] 150 mg PO HS 04/25/14 09/23/17 History Magnesium Oxide [Mag-Ox] 500 mg PO HS 05/02/15 09/23/17 History levETIRAcetam [Keppra] 1,500 mg PO BID 05/02/15 09/23/17 History Ferrous Sulfate [Iron (65 MG 975 mg PO HS 09/22/15 09/23/17 History Elemental)] HYDROcodone/APAP 10-325MG [[place] 1 tab PO Q4-6H PRN 09/22/15 09/23/17 History 10-325] [place]-3 Fatty Acids/Fish Oil [Fish 1 cap PO QAM 09/22/15 09/23/17 History Oil 1,000 mg Softgel] Omeprazole [PriLOSEC] 20 mg PO HS 09/28/15 09/23/17 History Atorvastatin [Lipitor] 80 mg PO HS 07/09/17 09/23/17 History Clopidogrel [Plavix] 75 mg PO QAM 07/09/17 09/23/17 History Docusate [Colace] 200 mg PO QAM 07/09/17 09/23/17 History FLUoxetine HCL [PROzac] 20 mg PO BID 07/09/17 09/23/17 History amLODIPine [Norvasc] 5 mg PO BID #60 tab 08/17/17 09/23/17 Rx predniSONE 10 mg PO QAM 09/23/17 09/23/17 History Allergies Allergy/AdvReac Type Severity Reaction Status Date / Time No Known Allergies Allergy Verified 09/23/17 15:28 Physical Examination Physical exam: Patient is drowsy but is able to be aroused and will answer questions appropriately; he does communicate slowly Vital signs stable Good chest excursion with deep inspiration and expiration Abdomen soft nontender Examination of lumbar spine reveals skin is intact with no abrasions, lacerations, or bruises; no erythema, purulence or signs of infection Significant pain with palpation along the midline of the mid thoracic spine Dorsiflexion, plantarflexion, and extensor hallucis longus positive sustained bilaterally but movements are slow Active range of motion the bilateral lower extremities but slow throughout range of motion Pain with palpation over the bilateral feet and ankles No signs or symptoms of DVT; no calf pain No pain with internal and external rotation of the hips bilaterally Neurovascularly intact Results Pertinent studies: CT of the thoracic and lumbar spine taken on 09/23/2017: Evidence of acute T8 compression fracture with approximately 25% height loss at the superior endplate with evidence of osteosclerosis; evidence of a T7 compression fracture deformity with anterior wedging with approximately 25% height loss without significant change as compared to previous exam; mild thoracic kyphotic deformity; L3 superior endplate compression deformity at approximately 10% height loss - Labs Labs: Abnormal Lab Results - Last 24 Hours (Table) 09/23/17 09/23/17 09/23/17 Range/Units 15:03 15:03 16:01 APTT 21.6 L (22.0-30.0) sec Troponin I 0.037 H* (0.000-0.034) ng/mL Urine Ketones 1+ H (Negative) Microbiology - Last 24 Hours (Table) 09/23/17 16:01 Urine Culture - Preliminary Urine,Voided H & H 09/23/17 Range/Units 15:03 Hgb 14.4 (13.0-17.5) gm/dL Hct 41.9 (39.0-53.0) % Coagulation 09/23/17 Range/Units 15:03 INR 1.0 (<1.2) Result Diagrams: 09/23/17 15:03 09/23/17 15:03 Assessment and Plan Assessment: Assessment: Acute T8 compression fracture deformity Thoracic back pain Chronic T7 compression fracture deformity L3 compression fracture deformity of indeterminate age History of COPD History of coronary artery disease with stent placement History of peripheral vascular disease History of TIA with mild cognitive impairment Rheumatoid arthritis (1) Thoracic compression fracture Current Visit: Yes Status: Acute Code(s): S22.000A - WEDGE COMPRESSION FRACTURE OF UNSP THORACIC VERTEBRA, INIT SNOMED Code(s): 696428807 (2) Lumbar compression fracture Current Visit: Yes Status: Acute Code(s): S32.000A - WEDGE COMPRESSION FRACTURE OF UNSP LUMBAR VERTEBRA, INIT SNOMED Code(s): 541066610 (3) History of TIA (transient ischemic attack) Current Visit: Yes Status: Acute Code(s): Z86.73 - PRSNL HX OF TIA (TIA), AND CEREB INFRC W/O RESID DEFICITS SNOMED Code(s): 327797889 (4) Acute thoracic back pain Current Visit: Yes Status: Acute Code(s): M54.6 - PAIN IN THORACIC SPINE SNOMED Code(s): 532784603 (5) History of COPD Current Visit: Yes Status: Acute Code(s): Z87.09 - PERSONAL HISTORY OF OTHER DISEASES OF THE RESPIRATORY SYSTEM SNOMED Code(s): 156673484 (6) History of coronary artery disease Current Visit: Yes Status: Acute Code(s): Z86.79 - PERSONAL HISTORY OF OTHER DISEASES OF THE CIRCULATORY SYSTEM SNOMED Code(s): 168656816 (7) History of peripheral vascular disease Current Visit: Yes Status: Acute Code(s): Z86.79 - PERSONAL HISTORY OF OTHER DISEASES OF THE CIRCULATORY SYSTEM SNOMED Code(s): 296753778 Plan: Plan: 1. After reviewing of imaging, discussion with Dr. Miguel Benoit, physical examination of the patient, and discussion with the patient and his family, we will currently plan to continue with conservative treatment in regards to his new T8 compression fracture deformity. He is experiencing significant pain at this fracture site which correlates well with his imaging. At this time, we will plan to obtain a Spinomed TLSO brace. Patient should refrain from working with physical therapy until this brace has been delivered and fitted appropriately. Once this brace has been delivered and fitted properly, patient should wear this brace while sitting upright at greater than 45, while ambulating, while doing activities, and while working with physical therapy. Brace does not have to be worn while lying in bed or while bathing. Once the brace has been delivered and fitted properly, patient is clear for discharge from orthopedic spine standpoint. Following discharge, patient may follow-up with Oniel Ramos PA-C or Dr. Miguel Benoit at [facility] in approximately 2-3 weeks for further evaluation. 2. Continue pain control; patient may continue pain control with [place] 10 mg/ 325 mg and Neurontin in the outpatient setting as prescribed at the [place] 3. Medicine and cardiology will continue following the patient closely 4. Patient has been discussed with Dr. Miguel Benoit and he agrees with this plan Time with Patient: Less than 30
[2017-09-24] MEDS: buPROPion XL 150 MG TAB.ER.24H PO SCH (20:09)
[2017-09-24] MEDS: MAGNESIUM OXIDE 400 MG TAB PO SCH (20:09)
[2017-09-24] MEDS: ATORVASTATIN 80 MG TAB PO SCH (20:09)
[2017-09-24] MEDS: FOLIC ACID 1 MG TAB PO SCH (20:09)
[2017-09-25] MEDS: HYDROcodone/APAP 10-325MG 1 EACH TAB PO PRN ×3 (04:23→15:45)
[2017-09-25 05:57] LABS: Basophils # (A) 0.1 k/uL (0-0.2); Basophils % (A) 1 %; Eosinophils # (A) 0.1 k/uL (0-0.7); Eosinophils % (A) 1 %; HCT 39.5 % (39.0-53.0); HGB 13.8 gm/dL (13.0-17.5); Lymphocytes # (A) 1.2 k/uL (1.0-4.8); Lymphocytes % (A) 11 %; MCH 32.8 pg (25.0-35.0); MCHC 34.9 g/dL (31.0-37.0); Mean Platelet Volume 6.9; Monocytes # (A) 0.8 k/uL (0-1.0); Monocytes % (A) 8 %; Neutrophils # (A) 7.7 k/uL (1.3-7.7); Neutrophils % (A) 76 %; Platelet Count 183 k/uL (150-450); Poikilocytosis Slight; RDW 14.1 % (11.5-15.5); WBC 10.1 k/uL (3.8-10.6)
[2017-09-25 06:21] LABS: Anion Gap 8 mmol/L; Blood Urea Nitrogen 22 mg/dL (9-20); Calcium 9.4 mg/dL (8.4-10.2); Carbon Dioxide 27 mmol/L (22-30); Chloride 104 mmol/L (98-107); Glucose 100 mg/dL (74-99); Potassium 3.7 mmol/L (3.5-5.1); Sodium 139 mmol/L (137-145)
[2017-09-25] MEDS: PANTOPRAZOLE 40 MG TABLET PO SCH (06:27)
[2017-09-25] MEDS: FERROUS SULFATE 325 MG TAB PO SCH ×3 (06:27→17:21)
[2017-09-25] MEDS: CLOPIDOGREL 75 MG TAB PO SCH (08:40)
[2017-09-25] MEDS: METOPROLOL TARTRATE 25 MG TAB PO SCH ×2 (08:40→21:48)
[2017-09-25] MEDS: DOCUSATE 100 MG CAP PO SCH (08:41)
[2017-09-25] MEDS: predniSONE 10 MG TAB PO SCH (08:41)
[2017-09-25] MEDS: FLUoxetine HCL 20 MG CAP PO SCH ×2 (08:41→21:48)
[2017-09-25] MEDS: CYCLOBENZAPRINE 10 MG TAB PO PRN (10:36)
[2017-09-25] MEDS: amLODIPine 5 MG TAB PO SCH ×2 (11:02→21:48)
[2017-09-25] MEDS: HYDROmorphone 2 MG TAB PO PRN ×3 (12:39→21:52)
--- NOTE | 2017-09-25 14:33 | P.PN ---
Subjective Progress Note Date: 09/25/17 This is a 66-year-old gentleman most of the history was obtained from the medical record, patient can give some history however is quite confused about majority of his history. He has a history of COPD on home O2, peripheral vascular disease, coronary artery disease with prior stent placement, history of TIA, cognitive impairment, compression fractures. He was brought to the hospital by family because of severe back pain. He has been apparently taking [place] at home and has been treated as an outpatient by painter. Cardiology consultation was requested because of abnormal troponins. According to the patient, he has not been experiencing any chest discomfort, no shortness of breath. EKG shows normal sinus rhythm with no acute changes. Chest x-ray shows some scarring and atelectasis at the left lung base, unchanged from last exam. There is improved inspiration and clearing of mild atelectasis as compared with prior exam. CAT scan of the chest was performed which negative for pulmonary embolism. Partial clearing of the infiltrates and pleural thickening as compared with prior. CAT scan of the spine revealed a T7 compression fracture without change as compared with prior. There is a new mild T8 compression fracture noted. Blood pressure on arrival here 170/90 with a heart rate in the 90s, 94% on room air. Blood pressure this morning 142/80 with a heart rate in the 80s to 90s. White blood cell count normal, hemoglobin 14.4, d-dimer 0.6. Sodium 139, potassium 4.1, BUN 19, creatinine 0.8. Troponins 0.037, 0.031. At the time of our examination this morning, patient denies any chest discomfort, breathing is stable, continues to complain of back pain. 09/25/2017 Patient seen and examined this morning, continues to have back discomfort, CBC normal, potassium 3.7, BUN 22, creatinine 0.8. Echo remains pending Objective - Vital Signs Vital signs: Vital Signs Temp 97.8 F 09/25/17 11:01 Pulse 60 09/25/17 11:01 Resp 16 09/25/17 11:01 BP 111/66 09/25/17 11:01 Pulse Ox 97 09/25/17 11:01 Intake & Output 09/24/17 09/25/17 09/25/17 18:59 06:59 18:59 Intake Total 400 240 280 Output Total 600 250 Balance -200 -10 280 Weight 78.9 kg Intake: IV 80 Sodium Chloride 0.9% 1, 80 000 ml @ 20 mls/hr IV . Q24H [facility] Rx#:[id number] Oral 400 240 200 Output: Urine 600 250 Other: Voiding Method Urinal Urinal Urinal # Voids 1 - Exam PHYSICAL EXAMINATION: HEENT: Head is atraumatic, normocephalic. Pupils equal, round. Neck is supple. There is no elevated jugular venous pressure. HEART EXAMINATION: Heart S1, S2 normal. No murmur or gallop heard. CHEST EXAMINATION: Lungs reveal diminished air entry to bilateral bases. ABDOMEN: Soft, nontender. Bowel sounds are heard. No organomegaly noted. EXTREMITIES: 2+ peripheral pulses with no evidence of peripheral edema and no calf tenderness noted. NEUROLOGIC patient is awake, alert and oriented -3. . - Labs CBC & Chem 7: 09/25/17 05:20 09/25/17 05:20 Labs: Abnormal Lab Results - Last 24 Hours (Table) 09/25/17 09/25/17 Range/Units 05:20 05:20 RBC 4.20 L (4.30-5.90) m/uL BUN 22 H (9-20) mg/dL Glucose 100 H (74-99) mg/dL Microbiology - Last 24 Hours (Table) 09/23/17 16:01 Urine Culture - Final Urine,Voided 09/23/17 15:03 Blood Culture - Preliminary Blood No Growth after 24 hours Assessment and Plan Plan: Assessment and plan #1 acute on chronic back pain secondary to T7 and T8 fractures #2 abnormal troponin, not consistent with acute coronary syndrome, likely secondary to supply and demand mismatch, patient denies any chest discomfort. Does not show any acute changes, normal sinus rhythm. #3 COPD on home O2 #4 history of coronary artery disease with prior stent placement Number 5 rheumatoid arthritis #6 history of TIA and CVA #7 severe peripheral vascular disease with prior stenting #8 hypertension #9 depression #10 hyperlipidemia Plan We'll continue the patient on his current medications. We will review echocardiogram with Doppler study. DNP note has been reviewed, I agree with a documented findings and plan of care. Patient was seen and examined.
[2017-09-25] MEDS: MAGNESIUM OXIDE 400 MG TAB PO SCH (21:48)
[2017-09-25] MEDS: ATORVASTATIN 80 MG TAB PO SCH (21:48)
[2017-09-25] MEDS: buPROPion XL 150 MG TAB.ER.24H PO SCH (21:48)
[2017-09-25] MEDS: FOLIC ACID 1 MG TAB PO SCH (21:48)
[2017-09-25] MEDS: SODIUM CHLORIDE 0.9% 1,000 ML IV SCH (21:49)
--- NOTE | 2017-09-25 22:06 | P.PN ---
Subjective Progress Note Date: 09/24/17 Principal diagnosis: Acute on chronic back pain Patient is a 66-year-old male with a known history of COPD on home oxygen, coronary artery disease with history of stent placement, peripheral vascular disease and history of TIA with mild cognitive impairment and also chronic back pain due to compression fractures and Imdur arthritis came to ER with complaints of severe back pain for the past 2 days patient is unable to get her to the bed and needs 2 person assistance at home to transfer to change. Patient was brought to the hospital by his family for further evaluation. Patient follows [place] [facility]. She is currently taking [place] 10 and Neurontin has been recently prescribed by his rn pain management. Otherwise patient denied any chest pain or shortness of breath. Back pain is mainly upper chest area. Patient reports generally feels very weak.Patient denies any recent fever , chills, shortness of breath, chest pain, nausea vomiting, numbness or tingling , dysuria or hematuria, constipation or diarrhea, headaches or visual changes, or any other current symptoms. D-dimer 0.61 Troponin 0.037 CTA showed no evidence of pulmonary embolism. There is partial clearing of infiltrates and pleural thickening at the lung base compared to previous exam CT thorax showed C7 compression fracture without change from old exam. New partial C8 compression fractures noted 09/24/2017 Patient does have some improvement in back pain. Patient was seen by orthopedics and recommended back brace which will be delivered tomorrow. Otherwise cardiology recommends 2-D echo which was done. Unlikely acute coronary syndrome. Otherwise patient denied any chest pain or shortness of breath. No nausea vomiting or abdominal pain. No other acute overnight issues. Complete review of systems could not be obtained from the patient due to underlying cognitive impairment Current medications reviewed Objective - Vital Signs Vital signs: Vital Signs Temp 97.3 F L 09/24/17 15:30 Pulse 64 09/24/17 15:30 Resp 16 09/24/17 15:30 BP 126/71 09/24/17 15:30 Pulse Ox 97 09/24/17 15:30 Intake & Output 09/24/17 09/24/17 09/25/17 06:59 18:59 06:59 Intake Total 400 Output Total 400 600 Balance -400 -200 Weight 71 kg Intake: Oral 400 Output: Urine 400 600 Other: Voiding Method Diaper Urinal Incontinent # Voids 4 - Exam Patient is lying in the bed comfortably, no acute distress, awake alert and oriented.. Mild cognitive impairment HEENT: Normocephalic. Neck is supple. Pupils reactive. Nostrils clear. Oral cavity is moist. Ears reveal no drainage. Neck reveals no JVD, carotid bruits, or thyromegaly. CHEST EXAMINATION: Trachea is central. Symmetrical expansion. Diminished breath sounds bilateral basilar. Mild expiratory wheezing no crackles. Minimal rhonchi. CARDIAC: Normal S1, S2 with no gallops. No murmurs ABDOMEN: Soft. Bowel sounds normal. No organomegaly. No abdominal bruits. Extremities: reveal no edema. No clubbing or cyanosis Neurologically awake, alert, oriented x3 with well-coordinated movements. No focal deficits noted. Mild cognitive impairment Skin: No rash or skin lesions. Psychiatric: Cooperative. Nonsuicidal Musculoskeletal: Tenderness over the lower thoracic spine. No joint swelling or deformity. Normal range of motion. - Labs CBC & Chem 7: 09/25/17 05:20 09/25/17 05:20 Labs: Microbiology - Last 24 Hours (Table) 09/23/17 16:01 Urine Culture - Final Urine,Voided 09/23/17 15:03 Blood Culture - Preliminary Blood No Growth after 24 hours Assessment and Plan Assessment: Acute on chronic back pain due to T7 compression fracture and new partial T8 compression fracture Elevated troponin 0.037. Possible troponin leak. Unlikely ACS. Will follow 2- D echo report. History of coronary artery disease with stent placement. Last in 1999 COPD on home oxygen intermittently Rheumatoid arthritis. Chronic steroid-dependent prednisone 20 mg daily Osteoporosis History of TIA/CVA with mild cognitive impairment Chronic pain Severe peripheral vascular disease with history of lower extremity stent placement History of right carotid endarterectomy Hydrocephalus with History of CORE PASTER shunt placement in 1986 History of left rotator cuff repair. Seizure disorder Hypertension Depression Normocytic anemia and history of iron deficiency DVT prophylaxis Plan: Patient will be continued on pain medications in the form of [place] 10, Flexeril and morphine when necessary. Neurontin will be added. Due to elevated troponin level cardiology will be consulted and prior history of coronary disease. Unlikely acute syncope syndrome. 2-D echocardiogram was ordered. Continue with telemetry monitoring and serial EKG and troponins. Continue with Plavix and statins. Continue with home medications and breathing treatments as needed. Stool softeners. DVT prophylaxis. Further recommendations based on the clinical course. Prognosis is guarded with multiple medical problems and comorbid conditions. Discussed with his daughter at bedside in detail. Time with Patient: Greater than 30
--- NOTE | 2017-09-25 22:07 | P.PN ---
Subjective Progress Note Date: 09/25/17 Principal diagnosis: Acute on chronic back pain Patient is a 66-year-old male with a known history of COPD on home oxygen, coronary artery disease with history of stent placement, peripheral vascular disease and history of TIA with mild cognitive impairment and also chronic back pain due to compression fractures and Imdur arthritis came to ER with complaints of severe back pain for the past 2 days patient is unable to get her to the bed and needs 2 person assistance at home to transfer to change. Patient was brought to the hospital by his family for further evaluation. Patient follows [facility]. She is currently taking Eure 10 and Neurontin has been recently prescribed by his silk screen painter. Otherwise patient denied any chest pain or shortness of breath. Back pain is mainly upper chest area. Patient reports generally feels very weak.Patient denies any recent fever , chills, shortness of breath, chest pain, nausea vomiting, numbness or tingling , dysuria or hematuria, constipation or diarrhea, headaches or visual changes, or any other current symptoms. D-dimer 0.61 Troponin 0.037 CTA showed no evidence of pulmonary embolism. There is partial clearing of infiltrates and pleural thickening at the lung base compared to previous exam CT thorax showed C7 compression fracture without change from old exam. New partial C8 compression fractures noted 09/24/2017 Patient does have some improvement in back pain. Patient was seen by orthopedics and recommended back brace which will be delivered tomorrow. Otherwise cardiology recommends 2-D echo which was done. Unlikely acute coronary syndrome. Otherwise patient denied any chest pain or shortness of breath. No nausea vomiting or abdominal pain. No other acute overnight issues. 09/25/2017 Patient denied any complaints of chest pain or shortness of breath. Back pain is improving slowly. Orthopedics and cardiology is on board. No further cardiac workup. At this time. PT OT will be consulted. Continue with back brace. Will follow-up 2-D echo report. Otherwise no acute overnight issues. Complete review of systems could not be obtained from the patient due to underlying cognitive impairment Current medications reviewed Objective - Vital Signs Vital signs: Vital Signs Temp 97.6 F 09/25/17 19:17 Pulse 73 09/25/17 19:17 Resp 18 09/25/17 19:17 BP 118/65 09/25/17 19:17 Pulse Ox 92 L 09/25/17 19:17 Intake & Output 09/25/17 09/25/17 09/26/17 06:59 18:59 06:59 Intake Total 240 540 Output Total 250 Balance -10 540 Weight 78.9 kg Intake: IV 80 Sodium Chloride 0.9% 1, 80 000 ml @ 20 mls/hr IV . Q24H [facility] Rx#:[id number] Oral 240 460 Output: Urine 250 Other: Voiding Method Urinal Urinal # Voids 1 - Exam Patient is lying in the bed comfortably, no acute distress, awake alert and oriented.. Mild cognitive impairment HEENT: Normocephalic. Neck is supple. Pupils reactive. Nostrils clear. Oral cavity is moist. Ears reveal no drainage. Neck reveals no JVD, carotid bruits, or thyromegaly. CHEST EXAMINATION: Trachea is central. Symmetrical expansion. Diminished breath sounds bilateral basilar. Mild expiratory wheezing no crackles. Minimal rhonchi. CARDIAC: Normal S1, S2 with no gallops. No murmurs ABDOMEN: Soft. Bowel sounds normal. No organomegaly. No abdominal bruits. Extremities: reveal no edema. No clubbing or cyanosis Neurologically awake, alert, oriented x3 with well-coordinated movements. No focal deficits noted. Mild cognitive impairment Skin: No rash or skin lesions. Psychiatric: Cooperative. Nonsuicidal Musculoskeletal: Tenderness over the lower thoracic spine. No joint swelling or deformity. Normal range of motion. - Labs CBC & Chem 7: 09/25/17 05:20 09/25/17 05:20 Labs: Abnormal Lab Results - Last 24 Hours (Table) 09/25/17 09/25/17 Range/Units 05:20 05:20 RBC 4.20 L (4.30-5.90) m/uL BUN 22 H (9-20) mg/dL Glucose 100 H (74-99) mg/dL Microbiology - Last 24 Hours (Table) 09/23/17 15:03 Blood Culture - Preliminary Blood No Growth after 48 hours 09/23/17 16:01 Urine Culture - Final Urine,Voided Assessment and Plan Assessment: Acute on chronic back pain due to T7 compression fracture and new partial T8 compression fracture Elevated troponin 0.037. Possible troponin leak. Unlikely ACS. Will follow 2- D echo report. History of coronary artery disease with stent placement. Last in 1999 COPD on home oxygen intermittently Rheumatoid arthritis. 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 Seizure disorder Hypertension Depression Normocytic anemia and history of iron deficiency DVT prophylaxis Plan: Patient will be continued on pain medications in the form of Eure 10, Flexeril and morphine when necessary. Neurontin will be added. Due to elevated troponin level cardiology will be consulted and prior history of coronary disease. Unlikely acute syncope syndrome. 2-D echocardiogram was ordered. Continue with telemetry monitoring and serial EKG and troponins. Continue with Plavix and statins. Continue with home medications and breathing treatments as needed. Stool softeners. DVT prophylaxis. Further recommendations based on the clinical course. Prognosis is guarded with multiple medical problems and comorbid conditions. Discussed with his daughter at bedside in detail. Time with Patient: Greater than 30
[2017-09-26] MEDS: METOPROLOL TARTRATE 25 MG TAB PO SCH (07:55)
[2017-09-26] MEDS: HYDROmorphone 2 MG TAB PO PRN (07:55)
[2017-09-26] MEDS: FLUoxetine HCL 20 MG CAP PO SCH (07:55)
[2017-09-26] MEDS: amLODIPine 5 MG TAB PO SCH (07:55)
[2017-09-26] MEDS: DOCUSATE 100 MG CAP PO SCH (07:55)
[2017-09-26] MEDS: predniSONE 10 MG TAB PO SCH (07:55)
[2017-09-26] MEDS: FERROUS SULFATE 325 MG TAB PO SCH ×2 (07:55→12:27)
[2017-09-26] MEDS: PANTOPRAZOLE 40 MG TABLET PO SCH (07:55)
[2017-09-26] MEDS: CLOPIDOGREL 75 MG TAB PO SCH (07:55)
[2017-09-26] MEDS: HYDROcodone/APAP 10-325MG 1 EACH TAB PO PRN ×2 (09:56→15:49)
--- NOTE | 2017-09-26 10:01 | P.PN ---
Progress Note - Text Progress Note Date: 09/26/17 Patient is a very pleasant 66-year-old male who is seen and examined at the bedside for follow evaluation for an acute T8 compression fracture deformity. A Spinomed TLSO brace has been delivered and fitted appropriately. Since the application of this brace, patient states he has had significant improvement of his thoracic back pain. He is much more awake and alert today and is in good spirits. He states due to improvement of his symptoms, he is hoping for discharge today. He is known to have compression fractures previously and does have some difficulty with chronic back pain. He receives [place] 10 mg/325 mg and Neurontin as prescribed at the [facility]. Patient states he has pain in approximately the mid thoracic spine. He is not currently experiencing significant low back pain. He is able to move his legs independently but movements are slow. Patient continues to be seen by medicine and cardiology. Patient has a significant medical history including of COPD on home oxygen, coronary artery disease with history of stent placement, PVD, and history of TIA with mild cognitive impairment along with chronic back pain. Physical exam: Patient is awake, alert, and oriented 3; patient is communicating well and is in good spirits Vital signs stable Good chest excursion with deep inspiration and expiration Abdomen soft nontender Examination of lumbar spine reveals skin is intact with no abrasions, lacerations, or bruises; no erythema, purulence or signs of infection Significant pain with palpation along the midline of the mid thoracic spine Patient currently has his Spinomed TLSO brace in tact Dorsiflexion, plantarflexion, and extensor hallucis longus positive sustained bilaterally but movements are slow Active range of motion the bilateral lower extremities but slow throughout range of motion No significant pain with palpation over the bilateral feet and ankles today No signs or symptoms of DVT; no calf pain No pain with internal and external rotation of the hips bilaterally Neurovascularly intact Pertinent studies: CT of the thoracic and lumbar spine taken on 09/23/2017: Evidence of acute T8 compression fracture with approximately 25% height loss at the superior endplate with evidence of osteosclerosis; evidence of a T7 compression fracture deformity with anterior wedging with approximately 25% height loss without significant change as compared to previous exam; mild thoracic kyphotic deformity; L3 superior endplate compression deformity at approximately 10% height loss Assessment: Acute T8 compression fracture deformity Thoracic back pain Chronic T7 compression fracture deformity L3 compression fracture deformity of indeterminate age History of COPD History of coronary artery disease with stent placement History of peripheral vascular disease History of TIA with mild cognitive impairment Rheumatoid arthritis Plan: 1. We will currently plan to continue with conservative treatment in regards to his new T8 compression fracture deformity. A Spinomed TLSO brace has been delivered and fitted appropriately. His pain has been better controlled with this brace intact. We discussed he should continue to wear this brace while sitting upright at greater than 45, while ambulating, while doing activities, and while working with physical therapy. Brace does not have to be worn while lying in bed or while bathing. Patient is now clear for discharge from orthopedic spine standpoint. Following discharge, patient may follow-up with Oniel Ramos PA-C or Dr. Miguel Benoit at [facility] in approximately 2-3 weeks for further evaluation. 2. Continue pain control; patient may continue pain control with [place] 10 mg/ 325 mg and [facility] 3. Medicine and cardiology will continue following the patient closely 4. Patient has been discussed with Dr. Miguel Benoit and he agrees with this plan
[2017-09-26 15:27] VITALS: BP 116/64; PULSE 68; RESP 18; TEMP 97.7
--- NOTE | 2017-09-26 15:40 | P.DS ---
Providers Date of admission: 09/23/17 19:08 Expected date of discharge: 09/26/17 Attending physician: Casimiro Garay Consults: 09/23/17 19:08 Consult Physician Stat Consulting Provider: Seth Mehta Consult Reason/Comments: Elevated Troponin Do you want consulting provider notified?: Yes, Notify in am 09/23/17 20:51 Consult Physician Urgent Consulting Provider: Luis Grant Consult Reason/Comments: compression fracture Do you want consulting provider notified?: Yes Primary care physician: [facility] Hospital Course: Hospital course Patient is Acute on chronic back pain due to T7 compression fracture and new partial T8 compression fracture Elevated troponin 0.037. Possible troponin leak. Unlikely ACS. TTE was done.. History of coronary artery disease with stent placement. Last in 1999 COPD on home oxygen intermittently Rheumatoid arthritis. 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 Seizure disorder Hypertension Depression Normocytic anemia and history of iron deficiency DVT prophylaxis Hospital course Patient is a 66-year-old male with a known history of COPD on home oxygen, coronary artery disease with history of stent placement, peripheral vascular disease and history of TIA with mild cognitive impairment and also chronic back pain due to compression fractures and Imdur arthritis came to ER with complaints of severe back pain for the past 2 days patient is unable to get her to the bed and needs 2 person assistance at home to transfer to change. Patient was brought to the hospital by his family for further evaluation. Patient follows [facility]. She is currently taking [place] 10 and Neurontin has been recently prescribed by his chest painting and sealing supervisor. Otherwise patient denied any chest pain or shortness of breath. Back pain is mainly upper chest area. Patient reports generally feels very weak.Patient denies any recent fever , chills, shortness of breath, chest pain, nausea vomiting, numbness or tingling , dysuria or hematuria, constipation or diarrhea, headaches or visual changes, or any other current symptoms. D-dimer 0.61 Troponin 0.037 CTA showed no evidence of pulmonary embolism. There is partial clearing of infiltrates and pleural thickening at the lung base compared to previous exam CT thorax showed C7 compression fracture without change from old exam. New partial C8 compression fractures noted 09/24/2017 Patient does have some improvement in back pain. Patient was seen by orthopedics and recommended back brace which will be delivered tomorrow. Otherwise cardiology recommends 2-D echo which was done. Unlikely acute coronary syndrome. Otherwise patient denied any chest pain or shortness of breath. No nausea vomiting or abdominal pain. No other acute overnight issues. 09/25/2017 Patient denied any complaints of chest pain or shortness of breath. Back pain is improving slowly. Orthopedics and cardiology is on board. No further cardiac workup. At this time. PT OT will be consulted. Continue with back brace. Will follow-up 2-D echo report. Otherwise no acute overnight issues. 09/26/2017 Patient is participanting in physical therapy with a brace on. No complaints of chest pain or shortness of breath. Back pain is controlled with pain medications. We will add Neurontin up on discharge. Otherwise no acute overnight issues. Patient was continued on pain medications in the form of [place] 10, Flexeril and morphine when necessary. Neurontin will be added upon discharge.. Due to elevated troponin level cardiology will be consulted and prior history of coronary disease. Unlikely acute syncope syndrome. 2-D echocardiogram was ordered. Continue with telemetry monitoring and serial EKG and troponins. Continue with Plavix and statins. And beta blockers were added. Continue with home medications and breathing treatments as needed. Stool softeners. DVT prophylaxis. Patient is part spreading in physical therapy with back brace on. Patient is stable to be discharged to rehab. Discharge physical examination Patient is lying in the bed comfortably, no acute distress, awake alert and oriented.. Mild cognitive impairment HEENT: Normocephalic. Neck is supple. Pupils reactive. Nostrils clear. Oral cavity is moist. Ears reveal no drainage. Neck reveals no JVD, carotid bruits, or thyromegaly. CHEST EXAMINATION: Trachea is central. Symmetrical expansion. Diminished breath sounds bilateral basilar. No wheezing Minimal rhonchi. CARDIAC: Normal S1, S2 with no gallops. No murmurs ABDOMEN: Soft. Bowel sounds normal. No organomegaly. No abdominal bruits. Extremities: reveal no edema. No clubbing or cyanosis Neurologically awake, alert, oriented x3 with well-coordinated movements. No focal deficits noted. Mild cognitive impairment Skin: No rash or skin lesions. Psychiatric: Cooperative. Nonsuicidal Musculoskeletal: Mild Tenderness over the lower thoracic spine. No joint swelling or deformity. Normal range of motion. Total time taken greater than 35 minutes including 18 minutes for counseling and coordination of care. Patient Condition at Discharge: Stable Plan - Discharge Summary Discharge Rx Participant: No New Discharge Prescriptions: New Metoprolol Tartrate [Lopressor] 25 mg PO BID #60 tab Cyclobenzaprine [Flexeril] 10 mg PO TID PRN #20 tab PRN Reason: Muscle Spasm Gabapentin [Neurontin] 100 mg PO TID #90 cap Continue buPROPion HCL [Wellbutrin XL] 150 mg PO HS Folic Acid 1 mg PO HS levETIRAcetam [Keppra] 1,500 mg PO BID Magnesium Oxide [Mag-Ox] 500 mg PO HS Ferrous Sulfate [Iron (65 MG Elemental)] 975 mg PO HS HYDROcodone/APAP 10-325MG [[place] 10-325] 1 tab PO Q4-6H PRN PRN Reason: Pain Exira-3 Fatty Acids/Fish Oil [Fish Oil 1,000 mg Softgel] 1 cap PO QAM Omeprazole [PriLOSEC] 20 mg PO HS Docusate [Colace] 200 mg PO QAM FLUoxetine HCL [PROzac] 20 mg PO BID Atorvastatin [Lipitor] 80 mg PO HS Clopidogrel [Plavix] 75 mg PO QAM amLODIPine [Norvasc] 5 mg PO BID #60 tab predniSONE 10 mg PO QAM Discharge Medication List Folic Acid 1 mg PO HS 04/25/14 [History] buPROPion HCL [Wellbutrin XL] 150 mg PO HS 04/25/14 [History] Magnesium Oxide [Mag-Ox] 500 mg PO HS 05/02/15 [History] levETIRAcetam [Keppra] 1,500 mg PO BID 05/02/15 [History] Ferrous Sulfate [Iron (65 MG Elemental)] 975 mg PO HS 09/22/15 [History] HYDROcodone/APAP 10-325MG [[place] 10-325] 1 tab PO Q4-6H PRN 09/22/15 [History] Exira-3 Fatty Acids/Fish Oil [Fish Oil 1,000 mg Softgel] 1 cap PO QAM 09/22/15 [ History] Omeprazole [PriLOSEC] 20 mg PO HS 09/28/15 [History] Atorvastatin [Lipitor] 80 mg PO HS 07/09/17 [History] Clopidogrel [Plavix] 75 mg PO QAM 07/09/17 [History] Docusate [Colace] 200 mg PO QAM 07/09/17 [History] FLUoxetine HCL [PROzac] 20 mg PO BID 07/09/17 [History] amLODIPine [Norvasc] 5 mg PO BID #60 tab 08/17/17 [Rx] predniSONE 10 mg PO QAM 09/23/17 [History] Cyclobenzaprine [Flexeril] 10 mg PO TID PRN #20 tab 09/26/17 [Rx] Gabapentin [Neurontin] 100 mg PO TID #90 cap 09/26/17 [Rx] Metoprolol Tartrate [Lopressor] 25 mg PO BID #60 tab 09/26/17 [Rx] Follow up Appointment(s)/Referral(s): Michael Benoit DO [Doctor of Osteopathic Medicine] - 10/15/17 9:30 am (SUNDAY) [facility] Visiting Nurse, [NON-STAFF] - 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 OFFICE WILL CALL WITH APPOINTMENT TIME WITH MARY JANE LEWIS [phone]) Patient Instructions/Handouts: Vertebral Compression Fracture (DC) Activity/Diet/Wound Care/Special Instructions: Order for TLSO brace Pritesh - [phone] 1. Patient may wear Spinomed TLSO brace for comfort and support while sitting upright at greater than 45, while working with therapy, and while ambulating; patient does not have to wear the brace while lying in bed or bathing 2. Patient should avoid excessive bending, twisting, and lifting; no lifting greater than 10 pounds Cardiac diet. NO smoking, cessation information provided. Discharge Disposition: TRANSFER TO SNF/ECF
--- NOTE | 2017-09-26 17:15 | ECHOF ---
Referral Reason:abn trop MEASUREMENTS -------- HEIGHT: 175.3 cm WEIGHT: 78.5 kg BP: IVSd: 0.9 cm (0.6 - 1.1) LVIDd: 4.5 cm (3.9 - 5.3) LVPWd: 1.0 cm (0.6 - 1.1) IVSs: 1.3 cm LVIDs: 3.5 cm LVPWs: 1.1 cm LAESV Index (A-L): 23.26 ml/m Ao Diam: 3.1 cm (2.0 - 3.7) MV EXCURSION: 19.523 mm (> 18.000) MV EF SLOPE: 114 mm/s (70 - 150) EPSS: 1.2 cm MV E Gigi: 0.56 m/s MV DecT: 219 ms MV A Gigi: 0.74 m/s MV E/A Ratio: 0.75 RAP: 5.00 mmHg RVSP: 33.48 mmHg FINDINGS -------- Sinus rhythm. This was a techncally difficult study with suboptimal views, , Lumason utilized for enhancement of im ages. The left ventricular size is normal. There is mild concentric left ventricular hypertrophy. Overa ll left ventricular systolic function is low-normal with, an EF between 50 - 55 %. The right ventricle is normal in size. Normal LA size by volume 22+/-6 ml/m2. The right atrial size is normal. 5.0mg OF Lumason UTLIZED: 2 OR MORE WALL SEGMENTS NOT VISUALIZED. There is mild aortic valve sclerosis. There is no evidence of aortic regurgitation. Mild mitral annular calcification present. Mild mitral regurgitation is present. Mild tricuspid regurgitation present. There is no evidence of pulmonary hypertension. The right v entricular systolic pressure, as measured by Doppler, is 33.48mmHg. There is no pulmonic regurgitation present. The aortic root size is normal. There is no pericardial effusion. CONCLUSIONS -------- 1. This was a techncally difficult study with suboptimal views, , Lumason utilized for enhancement of images. 2. The left ventricular size is normal. 3. There is mild concentric left ventricular hypertrophy. 4. Overall left ventricular systolic function is low-normal with, an EF between 50 - 55 %. 5. Normal LA size by volume 22+/-6 ml/m2. 6. 5.0mg OF Lumason UTLIZED: 2 OR MORE WALL SEGMENTS NOT VISUALIZED. 7. There is mild aortic valve sclerosis. 8. Mild mitral annular calcification present. 9. Mild mitral regurgitation is present. 10. Mild tricuspid regurgitation present. 11. There is no evidence of pulmonary hypertension. 12. The right ventricular systolic pressure, as measured by Doppler, is 33.48mmHg. 13. There is no pulmonic regurgitation present. 14. The aortic root size is normal. 15. There is no pericardial effusion. BEH[employer]OL COUNSELORS: Margie Morris RDCS
--- NOTE | 2017-09-27 11:45 | CDI ---
Last Revision, June 2017 Documentation Clarification Form Date: 09/27/2017 11:29:00 AM From: DARIANA Kenyon; Corina Taylor, Consulting Sme Between 8 am and 5 pm Admit Date: 09/23/2017 7:08:00 PM Patient Name: Jitendra Holman Visit Number: [id number] Discharge Date: ATTENTION: The Clinical Documentation Specialists (CDI) and [facility] Coding Staff appreciate your assistance in clarifying documentation. Please respond to the clarification below the line at the bottom and electronically sign. The CDI & [facility] Coding staff will review the response and follow-up if needed. Please note: Queries are made part of the Legal Health Record. If you have any questions, please contact the author of this message via ITS. Dr. Casimiro Garay Osteoporosis is documented in progress notes and on the discharge summary. The patient is admitted for acute on chronic pain due to compression fractures of T8 and T9. He is chronic steroid-dependent, taking 20 [address] of [address] daily. CT of the thoracic spine dated September 23, showed compression fracture with 25% height loss at the superior endplate with osteosclerosis. In your professional opinion, please specify the type of osteoporosis: Age related Drug induced Idiopathic Postmenopausal Postsurgical malabsorption Post-traumatic Other (please specify): Unable to Determine Please clarify if the current compression fractures are: Due to osteoporosis Not due to osteoporosis Other, please specify: Unable to determine Osteoporosis possible chronic steroid use Compression fracture likely due to osteoporosis MTDD
== END 2017-09-26 17:09 | DRG 543 ==
LOC: EC 14:35 → 6SEL 19:08 → 4MS4W 09-25 18:43
PROVIDERS: ADMIT Internal Medicine; ATTEND Internal Medicine
DX: M80.88XA Other osteoporosis with current pathological fracture, vertebra(e), initial encounter for fracture (principal); J98.11 Atelectasis; Z99.81 Dependence on supplemental oxygen; F03.90 Unspecified dementia, unspecified severity, without behavioral disturbance, psychotic disturbance, mood disturbance, and anxiety; T38.0X5A Adverse effect of glucocorticoids and synthetic analogues, initial encounter; J44.9 Chronic obstructive pulmonary disease, unspecified; D64.9 Anemia, unspecified; E78.5 Hyperlipidemia, unspecified; F17.200 Nicotine dependence, unspecified, uncomplicated; F32.9 Major depressive disorder, single episode, unspecified; F41.9 Anxiety disorder, unspecified; G40.909 Epilepsy, unspecified, not intractable, without status epilepticus; G89.29 Other chronic pain; I10 Essential (primary) hypertension; I25.10 Atherosclerotic heart disease of native coronary artery without angina pectoris; I25.2 Old myocardial infarction; I73.9 Peripheral vascular disease, unspecified; M06.9 Rheumatoid arthritis, unspecified; R79.1 Abnormal coagulation profile; Z79.02 Long term (current) use of antithrombotics/antiplatelets; Z79.52 Long term (current) use of systemic steroids; Z79.899 Other long term (current) drug therapy; Z82.0 Family history of epilepsy and other diseases of the nervous system; Z83.3 Family history of diabetes mellitus; Z86.73 Personal history of transient ischemic attack (TIA), and cerebral infarction without residual deficits; Z95.5 Presence of coronary angioplasty implant and graft; Z95.820 Peripheral vascular angioplasty status with implants and grafts; Z98.2 Presence of cerebrospinal fluid drainage device
CPT/HCPCS: 36415; 71046; 71275; 72128; 72131; 80048; 80053; 81003; 82550; 82553; 83605; 83690; 84484; 85025; 85379; 85610; 85730; 87040; 87086; 93005; 93306; 96361; 96374; 99285